=== PATIENT | male | born 1985 | race Caucasian/White ===

== ENCOUNTER 2022-02-24 08:22 | Outpatient (REF) | payer OTHER, SELFPAY ==
[2022-02-24 11:14] LABS: Appearance Urine Clear; Color Urine Yellow; Glucose Urine UA Negative (Negative); Leukocyte Esterase Urine Negative (Negative); Nitrite Urine Negative (Negative); Urine Blood Negative (Negative); Urine Ketones Negative (Negative); Urine Protein Negative (Neg-Trace)
[2022-02-24 11:16] LABS: MANUAL DIFF FLAG NO
[2022-02-24 11:30] LABS: Basophils Absolute Auto 0.1 X10*3/uL (0.0-0.2); Basophils Percent Auto 0.8 % (0-2); Eosinophils Absolute Auto 0.1 X10*3/uL (0.0-0.4); Eosinophils Percent Auto 1.1 % (0-4); Hematocrit 50.9 % (42.0-52.0); Hemoglobin 16.9 g/dl (14.0-18.0); Imm Gran Abs Auto 0.02 X10*3/uL (0.00-0.03); Imm Gran Pct Auto 0.2 % (0.0-0.4); Lymphocytes Absolute Auto 2.1 X10*3/uL (1.2-4.9); Lymphocytes Percent Auto 25.6 % (20-40); Mean Corpuscular HGB Conc 33.2 g/dl (31.0-36.0); Mean Corpuscular Volume 87.3 fL (80.0-98.0); Mean Platelet Volume 9.7 fL (9.4-12.4); Monocytes Absolute Auto 0.8 X10*3/uL (0.1-1.2); Monocytes Percent Auto 9.9 % (2-11); Neutrophils Absolute Auto 5.2 x10*3/uL (2.0-8.3); Neutrophils Percent Auto 62.4 % (45-73); Platelet Count 267 X10*3/uL (160-400); Red Blood Count 5.83 X10*6/uL (4.60-5.80); White Blood Count 8.3 X10*3/uL (4.8-10.8)
[2022-02-24 12:01] LABS: Alanine Aminotransferase 30 U/L (0-40); Albumin Level 4.3 g/dL (3.5-5.0); Alkaline Phosphatase 86 U/L (39-117); Anion Gap 12 (12-20); Aspartate Amino Transferase 18 U/L (5-37); Bilirubin Total 0.7 mg/dL (0.0-1.0); Blood Urea Nitrogen 12 mg/dL (9-16); Calcium 9.4 mg/dL (8.4-10.2); Carbon Dioxide 32 mmol/L (22-29); Chloride 102 mmol/L (96-108); Cholesterol 218 mg/dL; Estimated Glomerular Filt Rate > 60; Glucose Fasting 99 mg/dL (60-99); HDL Cholesterol 35 mg/dL; LDL Cholesterol Calculated 153 mg/dl; Potassium 4.4 mmol/L (3.3-5.1); Sodium 142 mmol/L (135-145); Total Protein 7.6 g/dL (6.5-8.0); Triglycerides 151 mg/dL
[2022-02-24 12:03] LABS: TSH reflex Free T4 1.41 uIU/mL (0.32-4.0)
== END 2022-02-24 08:23 | disposition home or self-care (01) ==
LOC: HO.HMGCLDS 08:22
PROVIDERS: PCP Nurse Practitioner Family; Visit Provider Nurse Practitioner Family
DX: Z00.00 Encounter for general adult medical examination without abnormal findings (principal)
CPT/HCPCS: 36415; 80053; 80061; 81003; 84443; 85025

== ENCOUNTER → 2022-03-30 14:31 | Outpatient (BNVA) | payer OTHER, SELFPAY | PROVIDERS: PCP Nurse Practitioner Family; Visit Provider Internal Medicine | DX: J45.991 Cough variant asthma (principal); J30.9 Allergic rhinitis, unspecified ==

== ENCOUNTER → 2022-04-29 14:11 | Outpatient (BNVA) | payer OTHER, SELFPAY | PROVIDERS: PCP Nurse Practitioner Family; Visit Provider Internal Medicine | DX: Z13.89 Encounter for screening for other disorder (principal) ==

== ENCOUNTER → 2022-06-17 09:59 | Outpatient (REF) | payer OTHER, SELFPAY | LOC: HO.SL 09:59 | PROVIDERS: PCP Nurse Practitioner Family; Visit Provider Internal Medicine | DX: G47.33 Obstructive sleep apnea (adult) (pediatric) (principal); E66.01 Morbid (severe) obesity due to excess calories; J45.991 Cough variant asthma | CPT/HCPCS: 95806 ==

== ENCOUNTER → 2022-06-29 15:53 | Outpatient (BNVA) | payer OTHER, SELFPAY | PROVIDERS: PCP Nurse Practitioner Family; Visit Provider Internal Medicine | DX: Z13.89 Encounter for screening for other disorder (principal) ==

== ENCOUNTER 2023-02-07 15:58 | Outpatient (AMB) | payer OTHER, SELFPAY ==
[2023-02-07 16:04] VITALS: BP 130/88; PULSE 86; O2SAT 96; BMI 43.9
--- NOTE | 2023-02-07 16:04 | MHC.PC.OV ---
Vital Signs 02/07/23 16:04 Height 5 ft 6 in Weight 272 lb BMI 43.9 BP 130/88 Blood Pressure Location Lt brachial Position Sitting Pulse 86 Pulse Source Pulse Oximeter Pulse Oximetry (%) 96 Oxygen Delivery Method Room Air Intake Visit Reasons: Annual PE Intake Note: pt is here for his Annual PE Allergies amoxicillin Allergy (Unknown, Unverified 02/07/23 16:58) nausea/vomitting sumatriptan Allergy (Unknown, Verified 02/07/23 16:58) nausea/vomiting Medication List - Last Reconciled 02/07/23 by AUDRA Gomez albuterol sulfate 90 mcg/actuation 1 inh inhalation QID PRN cetirizine (Zyrtec) 10 mg PO DAILY PRN fluticasone propionate 50 mcg/actuation (Flonase Allergy Relief) 1 spray intranasal BID montelukast 10 mg PO BEDTIME 90 days omeprazole 20 mg PO BEDTIME Tobacco use date assessed: 02/07/23 Dental Screening Dental Screen Date: 02/07/23 Did you have a dental visit in the last 12 months?: Yes Did you have a dental problem in the last 6 months where you did not have access to dental care?: No Was dental information given to patient?: Patient has dentist HPI Annual PE HPI Details Pt is here for a PE. Will order labs. Pt c/o post-nasal drip. He reports that this only occurs in the morning and causes a cough. Pt is currently taking cetirizine 2 tabs at night as well as montelukast. will have him take 2 more cetirizine in the am PFSH Medical History EMILY (obstructive sleep apnea) Morbid obesity Cough variant asthma Allergic rhinitis Lateral epicondylitis, right elbow Family History Father Mental health disorder Maternal Uncle Substance use disorder Paternal Uncle Substance use disorder Social History Housing: House Patient Tobacco Use Status: Never used Tobacco e-Cigarette/Vaping Use: Never Used Second Hand Smoke Exposure: No service: No Current occupational status: employed Current occupation: [employer] Cognitive needs: No Hearing needs: No Vision needs: No Questionnaire Thrive Questionnaire Date Thrive assessed: 02/03/22 AUDIT C Alcohol Use Questionnaire (AUDIT-C) 1. How often do you have a drink containing alcohol?: 2-3 times a week 2. How many drinks containing alcohol do you have on a typical day when you are drinking?: 3 or 4 3. How often do you have six or more drinks on one occasion?: Never Total Score: 4 Score Reviewed/Action Taken: Yes ZULAY-7 AMB Questionnaire ZULAY-7 Date ZULAY - 7 assessed: 02/03/22 Source: Developed by Drs. Joshua Rhoades, Eveline Shay, Branden Moura and colleagues, with an educational juan from [employer]. Review of Systems Const Denies chills and Denies fever(s) Eyes Denies blurry vision ENT Denies vertigo, Denies dizziness and Denies sore throat Card Denies chest pain at rest, Denies chest pain with activity, Denies diaphoresis, Denies dyspnea and Denies dyspnea on exertion Resp Denies cough, Denies dyspnea, Denies dyspnea on exertion and Denies wheezing GI Denies abdominal pain, Denies melena, Denies hematochezia, Denies constipation, Denies diarrhea and Denies loose stools Denies hematuria Musc Denies numbness and Denies tingling Skin/Breast Denies lesions Neuro Denies vertigo, Denies dizziness, Denies numbness and Denies tingling Psych Denies anxiety, Denies depression, Denies homicidal ideation, Denies suicidal ideation and Denies other (substance abuse) Aller/Immun Denies wheezing Physical exam (Primary Care) Vital Signs: Last Vital Signs Pulse 86 02/07/23 16:04 BP 130/88 02/07/23 16:04 Pulse Ox 96 02/07/23 16:04 Oxygen Delivery Method Room Air 02/07/23 16:04 BMI result Body Mass Index 43.9 Tobacco/Smoking Status: Tobacco use Status Tobacco use date assessed 02/07/23 02/07/23 16:10 Patient Tobacco Use Status Never used Tobacco 02/07/23 16:04 e-Cigarette/Vaping Use Never Used 02/07/23 16:04 Thrive Assessment: Date of Thrive Assessment Date Thrive assessed 02/03/22 02/07/23 16:04 Const General: cooperative Nutritional Appearance: obese morbidly obese Orientation/consciousness: patient oriented x3 HENMT Head: Yes normal to inspection, Yes normocephalic and Yes atraumatic Ears: TM's normal bilaterally Eyes General: appearance normal, both eyes and all related structures Alignment and Position: alignment normal and position normal Neck Neck: Yes normal visual inspection and Yes no lymphadenopathy Thyroid: Thyroid normal Resp Effort & Inspection: normal respiratory effort Auscultation: clear to auscultation bilaterally Cardio Rate: regular rate Rhythm: regular rhythm Heart sounds: S1 normal heart sound present, S2 normal heart sound present and no murmurs GI Palpation (GI): Soft to palpation and nontender Auscultation: normal bowel sounds Male General Exam: Yes normal external exam Penis: normal penis Scrotum: scrotum normal, testes descended bilaterally and no inguinal hernias Testes: no testicular mass Skin Rashes: no rashes Neuro General: patient oriented x3, moves all extremities, no focal motor deficits and deep tendon reflexes 2+ bilaterally Romberg Test: Negative Psych Appearance: grossly normal Mental Status: mental status grossly normal Speech and movement: Normal speech and movement present Affect: normal affect Attitude: cooperative Thought process: Normal thought process present Thought content: Normal thought content present Insight: Good insight present (Psych) Judgement: Good judgement present (Psych) Assessment and Plan Assessment & Plan (1) Physical exam: Code(s): Z00.00 - Encounter for general adult medical examination without abnormal findings Plan The patient agreed to the use of a medical oncology physician for this encounter. Scribed for AUDRA Bergman by Bibi Connolly medical oncology physician, on 02/07/2023 at 16:15 EST. Orders: Orders TSH reflex Free T4 Today Z00.00 - Encounter for general adult medical examination without abnormal findings Lipid Panel Today Z00.00 - Encounter for general adult medical examination without abnormal findings Complete Blood Count Auto Diff Today Z00.00 - Encounter for general adult medical examination without abnormal findings Comprehensive [place]. Panel Fast Today Z00.00 - Encounter for general adult medical examination without abnormal findings UA CC w/rflx Micro + Cult Today Z00.00 - Encounter for general adult medical examination without abnormal findings Coding Level of Care Code Est Pt Prev Care 18-39y(09930) Diagnoses Physical exam Z00.00
== END 2023-02-07 16:33 | disposition home or self-care (01) ==
PROVIDERS: Visit Provider Nurse Practitioner Family
DX: Z00.00 Encounter for general adult medical examination without abnormal findings (principal)
CPT/HCPCS: 99395

== ENCOUNTER 2023-03-23 13:51 | Outpatient (AMB) | payer OTHER, SELFPAY ==
--- NOTE | 2023-03-23 13:58 | MHC.OFFWIV ---
Intake Vital Signs 03/23/23 13:59 Height 5 ft 6 in Weight 270 lb 6 oz BMI 43.6 BP 140/90 H Blood Pressure Location Rt brachial Position Sitting Pulse 96 Pulse Source Pulse Oximeter Temp 97.5 F Temp Source Temporal Artery Scan Pulse Oximetry (%) 100 Oxygen Delivery Method Room Air Intake Visit Reasons: EST/sinus infection (lobby masked) Intake Note: Pt is here c/o possible sinus infection. Pt has c/o cough and sinus pressure for four days. Patient Tobacco Use Status: Never used Tobacco Allergies amoxicillin Allergy (Unknown, Unverified 03/23/23 13:59) nausea/vomitting sumatriptan Allergy (Unknown, Verified 03/23/23 13:59) nausea/vomiting Do you need a note to return to daycare/school/sports/work: No HPI EST/sinus infection (lobby masked) HPI Details 37 year old male patient presents today with a 4-5 day history of persistent, productive cough and nasal pressure/sinus congestion. He reports this happens about 2-3 times per year. She has chronic sinusitis and takes Zyrtec, flonase, singulair for this. He has been trying sudafed and prn albuterol inhaler without significant relief. Denies fever or chills. [facility] Medical History EMILY (obstructive sleep apnea) Morbid obesity Cough variant asthma Allergic rhinitis Lateral epicondylitis, right elbow Family History Father Mental health disorder Maternal Uncle Substance use disorder Paternal Uncle Substance use disorder Social History Housing: House Patient Tobacco Use Status: Never used Tobacco e-Cigarette/Vaping Use: Never Used Second Hand Smoke Exposure: No service: No Current occupational status: employed Current occupation: [employer] Cognitive needs: No Hearing needs: No Vision needs: No Review of Systems Const All systems reviewed & are unremarkable except as noted in HPI and below Physical Exam Vital Signs: Last Vital Signs Temp 97.5 F 03/23/23 13:59 Pulse 96 03/23/23 13:59 BP 140/90 H 03/23/23 13:59 Pulse Ox 100 12/20/23 13:59 Oxygen Delivery Method Room Air 03/23/23 13:59 BMI result Body Mass Index 43.6 Const General: cooperative HEENT Head: Yes normal to inspection Ears: hearing grossly normal bilaterally General nose exam: Normal external nose present and Nasal discharge present Face and sinus: Yes sinus tenderness (frontal and maxillary) Mouth: Normal oral and palatal mucosa present Throat: Yes posterior oropharynx abnormal (erythema) and Yes postnasal drainage Neck Neck: Yes no lymphadenopathy Resp Effort & Inspection: normal respiratory effort and Actively coughing Quality: actively coughing Auscultation: clear to auscultation bilaterally Cardio Jugular venous distension: no JVD Palpation: normal PMI Rate: regular rate Rhythm: regular rhythm Skin General skin exam: no rashes or lesions noted Extrem General: Yes capillary refill normal and Yes no clubbing, cyanosis or edema Psych Appearance: grossly normal Mental Status: mental status grossly normal Assessment & Plan Assessment & Plan (1) Acute sinus infection: Code(s): J01.90 - Acute sinusitis, unspecified Qualifiers: Sinusitis location: maxillary Recurrence: non-recurrent Qualified Code(s): J01.00 - Acute maxillary sinusitis, unspecified Plan: Started patient on azithromycin, short course of PO prednisone, and benzonatate for his persistent cough. We reviewed indications, use, possible s/e of these medications. He can continue to utilize allergy medication and inhaler as needed. Declines viral testing. If he does not improve with treatment he should return to the clinic for further evaluation. He agrees to plan. (2) Upper respiratory infection: Code(s): J06.9 - Acute upper respiratory infection, unspecified Qualifiers: URI type: unspecified URI Qualified Code(s): J06.9 - Acute upper respiratory infection, unspecified Plan: Plan as above. Medications: New azithromycin For 250 mg dose pack: take 500 mg today (day 1), then 250 mg for 4 days (days 2-5) PO 6 tabs 0RF J01.00 - Acute maxillary sinusitis, unspecified benzonatate 100 mg PO BID 14 caps 0RF cough 7 days R05.9 - Cough, unspecified prednisone 20 mg PO BID 10 tabs 0RF 5 days J01.00 - Acute maxillary sinusitis, unspecified, J06.9 - Acute upper respiratory infection, unspecified Coding Level of Care Code Est Pt Level 3 (00252) Diagnoses Acute non-recurrent maxillary sinusitis J01.00 Sinusitis location: maxillary Recurrence: non-recurrent Upper respiratory tract infection, unspecified type J06.9 URI type: unspecified URI
[2023-03-23 13:59] VITALS: BP 140/90; PULSE 96; TEMP 36.4; O2SAT 100; BMI 43.6
== END 2023-03-23 14:47 | disposition home or self-care (01) ==
PROVIDERS: PCP Nurse Practitioner Family; Visit Provider Nurse Practitioner Family
DX: J01.00 Acute maxillary sinusitis, unspecified (principal); J06.9 Acute upper respiratory infection, unspecified
CPT/HCPCS: 99213

== ENCOUNTER 2023-08-08 15:08 | Outpatient (AMB) | payer OTHER, SELFPAY ==
--- NOTE | 2023-08-08 15:16 | MHC.PC.OV ---
Vital Signs 08/08/23 15:18 Height 5 ft 6 in Weight 273 lb BMI 44.1 BP 124/80 Blood Pressure Location Lt brachial Position Sitting Pulse 80 Pulse Source Pulse Oximeter Pulse Oximetry (%) 98 Oxygen Delivery Method Room Air Intake Visit Reasons: 6 Month follow up Intake Note: Patient here for follow up on cough that has been present for about 1 year, pt states the cough is very bad in the morning especially. pt would like referral to ENT Allergies amoxicillin Allergy (Unknown, Unverified 08/08/23 15:20) nausea/vomitting sumatriptan Allergy (Unknown, Verified 08/08/23 15:20) nausea/vomiting Medication List - Last Reconciled 08/08/23 by AUDRA Gomez albuterol sulfate 90 mcg/actuation 1 inh inhalation QID PRN cetirizine (Zyrtec) 10 mg PO DAILY PRN fluticasone propionate 50 mcg/actuation (Flonase Allergy Relief) 1 spray intranasal BID montelukast 10 mg PO BEDTIME 90 days omeprazole 20 mg PO BEDTIME Tobacco use date assessed: 08/08/23 Dental Screening Dental Screen Date: 08/08/23 Did you have a dental visit in the last 12 months?: Yes Did you have a dental problem in the last 6 months where you did not have access to dental care?: No Was dental information given to patient?: Patient has dentist HPI 6 Month follow up HPI Details GERD: Ongoing, though managed with Omeprazole. Pt reports increased mucus production. He also reports some sinus pressure and cough, every morning since having COVID over a year ago. Pt was previously treated (most recently) with antibiotics and tessalon perles. He was taking cetirizine 20mg bid for approximately 2 weeks, which did not help. Will order CT of sinuses and RAST testing. Pt will let me know what television antenna installer he would like to see. Denies fever, chills, and dizziness. [facility] Medical History EMILY (obstructive sleep apnea) Morbid obesity Cough variant asthma Allergic rhinitis Lateral epicondylitis, right elbow Family History Father Mental health disorder Maternal Uncle Substance use disorder Paternal Uncle Substance use disorder Social History Housing: House Patient Tobacco Use Status: Never used Tobacco e-Cigarette/Vaping Use: Never Used Second Hand Smoke Exposure: No service: No Current occupational status: employed Current occupation: [employer] Cognitive needs: No Hearing needs: No Vision needs: No Questionnaire Thrive Questionnaire Date Thrive assessed: 02/03/22 I am a: Patient What is your living situation today?: I have a steady place to live Within the past 12 months, did the food you bought not last and you didn't have the money to get more?: Never true Within the past 12 months, did you worry whether your food would run out before you got money to buy more?: Never true THRIVE Score: 0 AUDIT C Alcohol Use Questionnaire (AUDIT-C) 1. How often do you have a drink containing alcohol?: 2-3 times a week 2. How many drinks containing alcohol do you have on a typical day when you are drinking?: 1 or 2 3. How often do you have six or more drinks on one occasion?: Less than monthly Total Score: 4 ZULAY-7 AMB Questionnaire ZULAY-7 Date ZULAY - 7 assessed: 02/03/22 Feeling nervous, anxious, or on edge: 1 = Several days Not being able to stop or control worryin = Several days Worrying too much about different things: 1 = Several days Trouble relaxin = Several days Being so restless that it is hard to sit still: 0 = Not at all Becoming easily annoyed or irritable: 1 = Several days Feeling afraid as if something awful might happen: 0 = Not at all Total ZULAY-7 score (0-4 normal; 5-9 mild; 10-14 moderate; 15-21 severe): 5 Source: Developed by Drs. Joshua Rhoades, Eveline Shay, Branden Moura and colleagues, with an educational juan from [employer]. Review of Systems Const Reports as per HPI Physical exam (Primary Care) Vital Signs: Last Vital Signs Pulse 80 08/08/23 15:18 BP 124/80 08/08/23 15:18 Pulse Ox 98 08/08/23 15:18 Oxygen Delivery Method Room Air 08/08/23 15:18 BMI result Body Mass Index 44.1 Tobacco/Smoking Status: Tobacco use Status Tobacco use date assessed 08/08/23 08/08/23 15:25 Patient Tobacco Use Status Never used Tobacco 08/08/23 15:18 e-Cigarette/Vaping Use Never Used 08/08/23 15:18 Thrive Assessment: Date of Thrive Assessment Date Thrive assessed 02/03/22 08/08/23 15:18 Const General: cooperative Nutritional Appearance: obese morbidly obese Orientation/consciousness: patient oriented x3 HENMT Mouth: Normal oral and palatal mucosa present Teeth and gingiva: dentition normal Throat: Yes posterior oropharynx normal and Yes tonsils normal Neck Lymphatic: no lymphadenopathy noted Resp Effort & Inspection: normal respiratory effort Auscultation: clear to auscultation bilaterally Cardio Rate: regular rate Rhythm: regular rhythm Heart sounds: S1 normal heart sound present and S2 normal heart sound present Neuro General: patient oriented x3 Psych Appearance: grossly normal Mental Status: mental status grossly normal Speech and movement: Normal speech and movement present Affect: normal affect Attitude: cooperative Thought process: Normal thought process present Thought content: Normal thought content present Insight: Good insight present (Psych) Judgement: Good judgement present (Psych) Assessment and Plan Assessment & Plan (1) Chronic cough: Code(s): R05.3 - Chronic cough Plan: Sinus CT ordered (2) Sinus pressure: Code(s): J34.89 - Other specified disorders of nose and nasal sinuses Plan: Sinus CT ordered Plan The patient agreed to the use of a certified ophthalmic medical technician for this encounter. Scribed for AUDRA Bergman by Bibi Connolly certified ophthalmic medical technician, on 08/08/2023 at 15:35 EST. Orders: Orders CT sinus wo IV con Today J34.89 - Other specified disorders of nose and nasal sinuses, R05.3 - Chronic cough Coding Level of Care Code Est Pt Level 3 (64187) Diagnoses Chronic cough R05.3 Sinus pressure J34.89
[2023-08-08 15:18] VITALS: BP 124/80; PULSE 80; O2SAT 98; BMI 44.1
== END 2023-08-08 16:54 | disposition home or self-care (01) ==
PROVIDERS: PCP Nurse Practitioner Family; Visit Provider Nurse Practitioner Family
DX: R05.3 Chronic cough (principal); J34.89 Other specified disorders of nose and nasal sinuses
CPT/HCPCS: 99213

== ENCOUNTER 2023-08-20 08:06 | Outpatient (REF) | payer OTHER, SELFPAY ==
[2023-08-20 11:25] LABS: Basophils Absolute Auto 0.1 X10*3/uL (0.0-0.2); Basophils Percent Auto 0.8 % (0-2); Eosinophils Absolute Auto 0.1 X10*3/uL (0.0-0.4); Eosinophils Percent Auto 1.3 % (0-4); Hematocrit 49.2 % (42.0-52.0); Hemoglobin 16.4 g/dl (14.0-18.0); Imm Gran Abs Auto 0.03 X10*3/uL (0.00-0.03); Imm Gran Pct Auto 0.4 % (0.0-0.4); Lymphocytes Absolute Auto 2.2 X10*3/uL (1.2-4.9); Lymphocytes Percent Auto 28.5 % (20-40); MANUAL DIFF FLAG NO; Mean Corpuscular HGB Conc 33.3 g/dl (31.0-36.0); Mean Corpuscular Hemoglobin 28.7 pg (27.0-33.0); Mean Corpuscular Volume 86.2 fL (80.0-98.0); Mean Platelet Volume 9.7 fL (9.4-12.4); Monocytes Absolute Auto 0.9 X10*3/uL (0.1-1.2); Monocytes Percent Auto 11.2 % (2-11); Neutrophils Absolute Auto 4.5 x10*3/uL (2.0-8.3); Neutrophils Percent Auto 57.8 % (45-73); Platelet Count 251 X10*3/uL (160-400); Red Blood Count 5.71 X10*6/uL (4.60-5.80); Red Cell Distribution Width 12.3 % (11.0-16.0); White Blood Count 7.7 X10*3/uL (4.8-10.8)
[2023-08-20 11:40] LABS: Appearance Urine Clear; Color Urine Yellow; Glucose Urine UA Negative (Negative); Leukocyte Esterase Urine Negative (Negative); Nitrite Urine Negative (Negative); Urine Blood Negative (Negative); Urine Ketones Negative (Negative); Urine Protein Negative (Neg-Trace)
[2023-08-20 12:14] LABS: Alanine Aminotransferase 30 U/L (0-40); Alkaline Phosphatase 81 U/L (39-117); Anion Gap 14 (12-20); Aspartate Amino Transferase 23 U/L (5-37); Bilirubin Total 0.6 mg/dL (0.0-1.0); Blood Urea Nitrogen 13 mg/dL (9-16); Calcium 9.3 mg/dL (8.4-10.2); Carbon Dioxide 24 mmol/L (22-29); Chloride 106 mmol/L (96-108); Cholesterol 184 mg/dL (<200); Estimated Glomerular Filt Rate > 60; Glucose Fasting 97 mg/dL (60-99); HDL Cholesterol 33 mg/dL (>40); LDL Cholesterol Calculated 121 mg/dL (<100); Potassium 4.1 mmol/L (3.3-5.1); Sodium 140 mmol/L (135-145); Total Protein 7.4 g/dL (6.5-8.0); Triglycerides 154 mg/dL (<150)
[2023-08-20 12:19] LABS: TSH reflex Free T4 1.18 uIU/mL (0.32-4.0)
== END 2023-08-20 08:07 | disposition home or self-care (01) ==
LOC: HO.HMGCLDS 08:06
PROVIDERS: PCP Nurse Practitioner Family; Visit Provider Nurse Practitioner Family
DX: Z00.00 Encounter for general adult medical examination without abnormal findings (principal)
CPT/HCPCS: 36415; 80053; 80061; 81003; 84443; 85025

== ENCOUNTER 2023-08-24 16:48 | Outpatient (REF) | payer OTHER, SELFPAY ==
--- NOTE | ~2023-08-24 | CT_ITS ---
EXAMINATION: CT SINUS WITHOUT CONTRAST CLINICAL INFORMATION: Chronic cough COMPARISON: None TECHNIQUE: Multidetector helical imaging was performed in the axial plane using landmarks protocol with generation of coronal and sagittal reformatted images. This CT examination was performed using dose optimization techniques as appropriate, variously including the following: *Automated exposure control *Adjustment of mA and/or kV according to patient size (this includes techniques or standardized protocols for targeted exams where dose is matched to indication/reason for exam; i.e. extremities or head) *Use of iterative reconstruction technique DLP: 123.36 mGy-cm FINDINGS: FRONTAL SINUSES AND DRAINAGE PATHWAYS: The frontal sinuses are clear. The frontal recesses are patent. MAXILLARY SINUSES AND DRAINAGE PATHWAYS: Trace mucosal thickening in the alveolar recesses of the left maxillary sinus. The maxillary ostia and infundibula are patent. ETHMOID SINUSES: The ethmoid air cells are clear. The ethmoid roofs appear intact and are symmetric. SPHENOID SINUS AND DRAINAGE PATHWAYS: The sphenoid sinus is clear.. The sphenoid ostia and sphenoethmoidal recesses are patent. NASAL PASSAGE: The nasal passages are clear. Large leftward osseous spur projects inferior to a hypoplastic left middle turbinate. ADDITIONAL RELEVANT FINDINGS: The lamina papyracea are intact. No demonstrated abnormalities of the orbits. The carotid canals are normally covered by bone. No significant maxillary periapical disease. The temporomandibular joints are normal. The mastoid air cells and middle ear cavities are well aerated. Limited evaluation of the intracranial structures without significant abnormalities. CT/CT sinus wo IV con IMPRESSION: 1. No active sinus disease. 2. Leftward osseous spurring of the nasal septum.
== END 2023-08-24 16:49 | disposition home or self-care (01) ==
LOC: HO.CT 16:48
PROVIDERS: PCP Nurse Practitioner Family; Visit Provider Nurse Practitioner Family
DX: J34.89 Other specified disorders of nose and nasal sinuses (principal); R05.3 Chronic cough
CPT/HCPCS: 70486

== ENCOUNTER 2024-02-29 16:00 | Outpatient (AMB) | payer OTHER, SELFPAY ==
[2024-02-29 16:03] VITALS: BP 118/84; PULSE 98; O2SAT 96; BMI 42.7
--- NOTE | 2024-02-29 16:03 | A.OFFPC_ITS ---
Vital Signs 02/29/24 16:03 Height 5 ft 6 in Weight 264 lb 8 oz BMI 42.7 BP 118/84 Blood Pressure Location Lt brachial Position Sitting Pulse 98 Pulse Source Pulse Oximeter Pulse Oximetry (%) 96 Oxygen Delivery Method Room Air Intake Visit Reasons: Annual PE Allergies amoxicillin Allergy (Unknown, Unverified 02/29/24 16:06) nausea/vomitting sumatriptan Allergy (Unknown, Verified 02/29/24 16:06) nausea/vomiting Medication List - Last Reconciled 02/29/[address] [facility] albuterol sulfate 90 mcg/actuation 1 inh inhalation QID PRN cetirizine (Zyrtec) 10 mg PO DAILY PRN fluticasone propionate 50 mcg/actuation (Flonase Allergy Relief) 1 spray intranasal BID montelukast 10 mg PO BEDTIME 90 days omeprazole 20 mg PO BEDTIME Tobacco use date assessed: 02/29/24 Dental Screening Dental Screen Date: 02/29/24 Did you have a dental visit in the last 12 months?: Yes Did you have a dental problem in the last 6 months where you did not have access to dental care?: No Was dental information given to patient?: Patient has dentist HPI Annual PE HPI Details History of Present Illness The patient is a 38-year-old male presenting with obesity and chronic cough. His chronic cough has been persistent, occurring every morning and often causing severe gagging. The patient reports no relief from previous medical therapies or medications. He has no history of sleep apnea and has tested negative for obstructive sleep conditions. Previously consulted specialists include a agent producer, with no significant findings, and the patient plans to see an telephone information clerk soon. The cough has persisted despite these consultations and is notably present in the mornings, with no alleviation from current treatments. For obesity, the patient has struggled with weight management despite efforts including dietary changes, reduced alcohol intake, and regular exercise. Patient's BMI is noted to be 42.7. The patient denies a history of pancreatitis. Patient has observed a minor weight reduction, approximately five pounds over a six-month duration, but describes difficulty in achieving further weight loss (exercise and diet). Social History - History of back and hip problems since playing baseball. - Attempts weight management through hea lthy eating and exercise. - Denies smoking but references use of n icotine alternatives. - Reports reduced alcohol intake as part of weight management efforts. Review of Systems - Respiratory: Reports chronic cough wit hout relief from treatments. - Musculoskeletal: Reports occasional ba ck pain higher than usual but consistent with previous back issues. - Gastrointestinal: Denies chest pain, b lood in stool, constipation, or diarrhea. - General: Denies recent fevers or chill s. Physical Exam General: Cooperative, healthy appearing, comfortable, no acute distress and well developed Orientation: Patient oriented x3 Head: Normal to inspection Ears: Hearing grossly normal bilaterally Nose: Normal external nose present Face and sinus: Normal facial exam Eyes: Appearance normal, both eyes and all related structures Neck: Normal visual inspection and Yes full ROM Respiratory: Moving really good air, honestly. Maybe slightly diminished, but not bad at all. Clear to auscultation bilaterally Cardiovascular: Regular rate and rhythm. Normal S1 and S2. Heart sounds good GI: Normal to inspection. Soft to palpation and nontender Skin: No rashes or lesions noted Neuro: Patient oriented x3. Good patellar reflexes Extremities: Normal to inspection Results Plan - For obesity, consideration of Wegovy s emaglutide) subject to insurance coverage and absence of contraindications such as pancreatitis. - Chronic cough: Attempt to order respir atory panel from the clinic; consideration for telephone information clerk or ENT follow-up if coughing persists. - Schedule blood work for renal, hepatic , and thyroid function evaluation. - Await results from upcoming telephone information clerk consult and potential KENDRA testing. Patient was informed and verbally consented to the use of an ambient scribe for clinic note documentation during this visit. Discussion Notes Patient Instructions - Continue weight management efforts wit h a focus on dietary and exercise adjustments. - Prepare for upcoming blood work by holland anderson as instructed. - Follow up with telephone information clerk as currently scheduled. - Contact the clinic if new symptoms alicia se or there are significant changes in current conditions. - Await further instructions regarding t he authorization and initiation of Wegovy treatment. - Consider ENT consultation if respirato ry symptoms persist post-telephone information clerk evaluation. [facility] Medical History EMILY (obstructive sleep apnea) Morbid obesity Cough variant asthma Allergic rhinitis Lateral epicondylitis, right elbow Family History Father Mental health disorder Maternal Uncle Substance use disorder Paternal Uncle Substance use disorder Social History Housing: House Patient Tobacco Use Status: Never used Tobacco e-Cigarette/Vaping Use: Never Used Second Hand Smoke Exposure: No service: No Current occupational status: employed Current occupation: [employer] Cognitive needs: No Hearing needs: No Vision needs: No Questionnaire PHQ-9 Over the last 2 weeks, how often have you been bothered by any of the following problems? 1. Little interest or pleasure in doing things: not at all 2. Feeling down, depressed, or hopeless: several days 3. Trouble falling or staying asleep, or sleeping too much: several days 4. Feeling tired or having little energy: not at all 5. Poor appetite or overeating: not at all 6. Feeling bad about yourself - or that you are a failure or have let yourself or your family down: not at all 7. Trouble concentrating on things, such as reading the newspaper or watching television: not at all 8. Moving or speaking so slowly that other people could have noticed. Or the opposite - being so fidgety or restless that you have been moving around a lot m ore than usual: not at all 9. Thoughts that you would be better off or of hurting yourself in some way: not at all Total score: 2 Depression Screening Interpretation: Negative Depression Screening Done: Yes 35153 - PHQ-9 Billing: Yes Source: Developed by Drs. Joshua Rhoades, Eveline Shay, Branden Moura and colleagues, with an educational juan from [employer]. Thrive Questionnaire Date Thrive assessed: 02/26/24 I am a: Patient What is your living situation today?: I have a steady place to live Within the past 12 months, did the food you bought not last and you didn't have the money to get more?: Never true Within the past 12 months, did you worry whether your food would run out before you got money to buy more?: Never true Do you have trouble paying for medicines?: No Do you have trouble getting transportation to medical appointments?: No Do you have trouble paying your heating and electricity bill?: No Do you have trouble taking care of your child, family member or friend?: No Do you have trouble with day-to-day activities such as bathing, preparing meals, shopping, managing finances, etc.?: No Are you currently unemployed and looking for a job?: No Are you interested in more education?: No Please select the resources that you would like help with: None Currently or been in a relationship where the following occur: No concerns reported THRIVE Score: 0 AUDIT C Alcohol Use Questionnaire (AUDIT-C) 1. How often do you have a drink containing alcohol?: 2-4 times a month 2. How many drinks containing alcohol do you have on a typical day when you are drinking?: 1 or 2 3. How often do you have six or more drinks on one occasion?: Less than monthly Total Score: 3 ZULAY-7 AMB Questionnaire ZULAY-7 Date ZULAY - 7 assessed: 02/29/24 Feeling nervous, anxious, or on edge: 0 = Not at all Not being able to stop or control worryin = Not at all Worrying too much about different things: 1 = Several days Trouble relaxin = Not at all Being so restless that it is hard to sit still: 0 = Not at all Becoming easily annoyed or irritable: 1 = Several days Feeling afraid as if something awful might happen: 0 = Not at all Total ZULAY-7 score (0-4 normal; 5-9 mild; 10-14 moderate; 15-21 severe): 2 Source: Developed by Drs. Joshua Rhoades, Eveline Shay, Branden Moura and colleagues, with an educational juan from [employer]. ZULAY-7 Assessment Billing ZULAY-7 Assessment Tool: ZULAY-7 Assessment 97258 Physical exam (Primary Care) Vital Signs: Last Vital Signs Pulse 98 02/29/24 16:03 BP 118/84 02/29/24 16:03 Pulse Ox 96 02/29/24 16:03 Oxygen Delivery Method Room Air 02/29/24 16:03 BMI result Body Mass Index 42.7 Tobacco/Smoking Status: Tobacco use Status Tobacco use date assessed 02/29/24 02/29/24 16:07 Patient Tobacco Use Status Never used Tobacco 02/29/24 16:07 e-Cigarette/Vaping Use Never Used 02/29/24 16:07 PHQ-9: PHQ-9 Score PHQ-9: Total score 2 02/29/24 16:28 Depression Screening Interpretation: Negative Thrive Assessment: Date of Thrive Assessment Date Thrive assessed 02/26/24 02/29/24 16:07 Currently or been in a relationship where the following occur: No concerns reported Office Procedures Flu Questionnaire Does the patient have a severe egg allergy?: No Does the patient have severe life threatening allergies?: No Does the patient have a fever or illness today?: No Has the patient ever had Guillain-[place] Syndrome?: No Has the patient ever had any past reaction to a flu shot?: No Immunizations Fluarix Triv [id number] (PF) 45 mcg (15 mcg x 3)/0.5 mL IM syringe Performing Provider: SANDRA Gomez Performing Location[place] [facility] Administered by: Debbie Blancas CMA on 02/29/24 16:42 Dose Route Admin Location Dispensed Lot Number Expiration Date NDC House Mother 0.5 mL IM Left Tricep 0.5 mL [id number] 10/01/24 23859-614-16 [employer] VIS Given Date VIS Provided VIS Publication Date 02/29/24 Single Vaccine 20 Eligibility Eligibility Date Funding Source Not [facility] Eligible 02/29/24 Private Coding Level of Care Code Est Pt Prev Care 18-39y(14543) Diagnoses Physical exam Z00.00 Chronic cough R05.3 Additional Codes ZULAY-7 Assessment Billing - ZULAY-7 Assessment Tool: ZULAY-7 Assessment 32911 ([id number]) PHQ-9 - 72596 - PHQ-9 Billing: Yes ([id number]) Assessment & Plan Assessment & Plan (1) Physical exam: Code(s): Z00.00 - Encounter for general adult medical examination without abnormal findings Category: Medical (2) Chronic cough: Code(s): R05.3 - Chronic cough Category: Medical Plan . Orders: Orders Comprehensive [place]. Panel Fast Today Z00.00 - Encounter for general adult medical examination without abnormal findings TSH reflex Free T4 Today Z00.00 - Encounter for general adult medical examination without abnormal findings UA CC w/rflx Micro + Cult Today Z00.00 - Encounter for general adult medical examination without abnormal findings Resp Allergy Profile Region I Today R05.3 - Chronic cough Complete Blood Count Auto Diff Today Z00.00 - Encounter for general adult medical examination without abnormal findings Lipid Panel Today Z00.00 - Encounter for general adult medical examination without abnormal findings Immunoglobulin E Today R05.3 - Chronic cough Influenza [id number] Immunization Today Z23 - Encounter for immunization Medications: New semaglutide (weight loss) (William) administer weeks 1 through 4 of therapy 0.25 mg (0.5 mL) subcut QWEEK 2 mL 0RF
== END 2024-02-29 16:47 | disposition home or self-care (01) ==
PROVIDERS: PCP Nurse Practitioner Family; Visit Provider Nurse Practitioner Family
DX: Z00.00 Encounter for general adult medical examination without abnormal findings (principal); R05.3 Chronic cough; Z23 Encounter for immunization

== ENCOUNTER → 2024-02-29 16:00 | Outpatient (BNVA) | payer OTHER, SELFPAY | PROVIDERS: PCP Nurse Practitioner Family; Visit Provider Nurse Practitioner Family | DX: Z00.00 Encounter for general adult medical examination without abnormal findings (principal); Z23 Encounter for immunization; R05.3 Chronic cough | CPT/HCPCS: 90471; 90656; 96127 ==

== ENCOUNTER 2024-04-16 15:22 | Outpatient (AMB) | payer OTHER, SELFPAY ==
--- NOTE | 2024-04-16 15:23 | A.OFFVIS_ITS ---
Vital Signs 04/16/24 15:27 Height 5 ft 6 in Weight 266 lb 12.149 oz BMI 43.1 BP 120/70 Blood Pressure Location Rt brachial Position Sitting Pulse 85 Pulse Source Pulse Oximeter Intake Visit Reasons: Morbid (severe) obesity-confirmed Intake Note: Patient presents today to establish treatment for Morbid (Severe) Obesity: Stud Beef Cattle Farmer Required: No Accompanied by: Self / Same As Patient Allergies amoxicillin Allergy (Unknown, Verified 04/16/24 15:28) nausea/vomitting sumatriptan Allergy (Unknown, Verified 04/16/24 15:28) nausea/vomiting Medication List - Last Reconciled 04/16/24 by Joshua Joshi MD albuterol sulfate 90 mcg/actuation 1 inh inhalation QID PRN cetirizine (Zyrtec) 10 mg PO DAILY PRN fluticasone propionate 50 mcg/actuation (Flonase Allergy Relief) 1 spray intranasal BID montelukast 10 mg PO BEDTIME 90 days omeprazole 20 mg PO BEDTIME semaglutide (weight loss) (Wegovy) 0.25 mg (0.5 mL) subcut QWEEK HPI Comments Details: This is a 38-year-old white male sent to endocrinology for evaluation of obesity. Weight gain occurred 20 lb over 2 yrs . Patient has tried diets of portion control . Patient has seen a kiln burner helper yrs ago at [facility] . There was no history of hypothyroidism. There are no symptoms of Dorian syndrome. Medications prescribed are Wegovy . Dad has Marek's Dx. Does not have sleep apnea , No loss of libido [facility] Medical History EMILY (obstructive sleep apnea) Morbid obesity Cough variant asthma Allergic rhinitis Lateral epicondylitis, right elbow Surgical History (Updated 04/16/24 @ 15:29 by MAURIZIO Hollingsworth) Hx of removal of cyst Hx of elbow surgery Family History (Updated 04/16/24 @ 15:33 by MAURIZIO Hollingsworth) Father Mental health disorder Family history of diabetes mellitus Maternal Uncle Substance use disorder Family history of diabetes mellitus Paternal Uncle Substance use disorder Social History Housing: House Patient Tobacco Use Status: Never used Tobacco e-Cigarette/Vaping Use: Never Used Second Hand Smoke Exposure: No service: No Current occupational status: employed Current occupation: [employer] Cognitive needs: No Hearing needs: No Vision needs: No Physical Exam Vital Signs: BMI result Body Mass Index 43.1 Const Other: No cushingoid features. Thyroid gland is normal size weighs about 15 g. There are no thyroid nodules palpated Assessment & Plan Assessment & Plan (1) Morbid obesity: Code(s): E66.01 - Morbid (severe) obesity due to excess calories Category: Medical Plan: This is a 38-year-old white male with a history of morbid obesity. He appears to be clinically and biochemically euthyroid. Plan is to send to kiln burner helper. We will talk to patient about prescribing weight loss medication such as Zepbound or Wegovy . Will attempt to prescribe Zepbound 2.5 mg Q weekly and titrate accordingly if insurance approves. Went over side effects of Zepbound including but not limited to nausea, vomiting rare risk of pancreatitis. If Zepbound is not approved, would attempt to get Wegovy. If this is not approved would then go with needle and Vial Zepbound Orders: Referrals Nutrition/Dietitian Referral E66.01 - Morbid (severe) obesity due to excess calories Medications: New tirzepatide (weight loss) (Zepbound) for 4 weeks 2.5 mg (0.5 mL) subcut QWEEK 2 mL 5RF Discontinued semaglutide (weight loss) (Wegovy) administer weeks 1 through 4 of therapy Discontinued Reason: Doctor's Order 0.25 mg (0.5 mL) subcut QWEEK 2 mL 0RF Coding Level of Care Code New Pt Level 4 (90484) Diagnoses Morbid obesity E66.01
[2024-04-16 15:27] VITALS: BP 120/70; PULSE 85; BMI 43.1
== END 2024-04-16 16:07 | disposition home or self-care (01) ==
PROVIDERS: PCP Nurse Practitioner Family; Visit Provider Internal Medicine Endocrinology, Diabetes & Metabolism
DX: E66.01 Morbid (severe) obesity due to excess calories (principal)
CPT/HCPCS: 99204

== ENCOUNTER 2024-07-24 10:53 | Outpatient (AMB) | payer OTHER, SELFPAY ==
--- NOTE | 2024-07-24 10:55 | A.OFFVIS_ITS ---
Vital Signs 07/24/24 10:57 Height 5 ft 6 in Weight 255 lb 4.725 oz BMI 41.2 BP 114/84 Blood Pressure Location Rt brachial Position Sitting Pulse 84 Pulse Source Pulse Oximeter Pulse Oximetry (%) 97 Oxygen Delivery Method Room Air Intake Visit Reasons: f/u obesity Intake Note: Patient present today for Obesity follow up. Irina reports she has been doing well on Zepbound and feels it may need to be increased from 2.5 mg to 5 mg. Sample Carrier Required: No Accompanied by: Self / Same As Patient Allergies amoxicillin Allergy (Unknown, Verified 07/24/24 11:04) nausea/vomitting sumatriptan Allergy (Unknown, Verified 07/24/24 11:04) nausea/vomiting Medication List - Last Reconciled 07/24/24 by Joshua Joshi MD albuterol sulfate 90 mcg/actuation 1 inh inhalation QID PRN cetirizine (Zyrtec) 10 mg PO DAILY PRN fluticasone propionate 50 mcg/actuation (Flonase Allergy Relief) 1 spray intranasal BID montelukast 10 mg PO BEDTIME 90 days omeprazole 20 mg PO BEDTIME tirzepatide (weight loss) (Zepbound) 2.5 mg (0.5 mL) subcut QWEEK HPI Comments Details: This is a 38-year-old white male sent to endocrinology for evaluation of obesity. Weight gain occurred 20 lb over 2 yrs . Patient has tried diets of portion control . Patient has seen a adult day care worker yrs ago at [facility] . There was no history of hypothyroidism. There are no symptoms of Dorian syndrome. Medications prescribed are Wegovy . Dad has Marek's Dx. Does not have sleep apnea , No loss of libido Currently on Zepbound 2.5 mg Q weekly The patient is a 38-year-old male presenting with medication management for obesity. He has been taking Zepbound 2.5 mg and initially lost about 11 pounds, decreasing from 273 to 255 pounds, but is now experiencing a plateau in weight loss over the past three months. He is concerned about this lack of progress and discussed potentially increasing his dosage with me. The patient experiences mild, manageable nausea a few days after taking the medication but denies any other symptoms. He finds managing the medication compliance straightforward and has no issues with insurance coverage for it. PFSH Medical History EMILY (obstructive sleep apnea) Morbid obesity Cough variant asthma Allergic rhinitis Lateral epicondylitis, right elbow Surgical History (Updated 04/16/24 @ 15:29 by MAURIIZO Hollingsworth) Hx of removal of cyst Hx of elbow surgery Family History (Updated 04/16/24 @ 15:33 by MAURIZIO Hollingsworth) Father Mental health disorder Family history of diabetes mellitus Maternal Uncle Substance use disorder Family history of diabetes mellitus Paternal Uncle Substance use disorder Social History Housing: House Patient Tobacco Use Status: Never used Tobacco e-Cigarette/Vaping Use: Never Used Second Hand Smoke Exposure: No service: No Current occupational status: employed Current occupation: [employer] Cognitive needs: No Hearing needs: No Vision needs: No Physical Exam Vital Signs: BMI result Body Mass Index 41.2 Assessment & Plan Assessment & Plan (1) Morbid obesity: Code(s): E66.01 - Morbid (severe) obesity due to excess calories Category: Medical Plan: This is a 38-year-old white male with a history of morbid obesity. He appears to be clinically and biochemically euthyroid. Currently on Zepbound 2.5 mg Q weekly with a 11 lb weight loss 1. Obesity The patient presents with a weight plateau despite ongoing treatment with Zepbound 2.5 mg. An increase in dosage to 5 mg is advised, contingent on insurance coverage approval. The plan includes coordinating with the pharmacy to ensure medication availability. Follow-up appointments are scheduled with a nurse practitioner Linnea Randhawa NP in 1 mo and a adult day care worker to explore additional management strategies. Non-pharmacological advice includes hydration before meals to help manage satiation. During our discussion, I explained the occurrence of weight plateaus when using medications like Zepbound and discussed the option to increase the dose to 5 mg to potentially overcome this plateau. The patient understood and agreed to this plan, provided insurance coverage is confirmed for the higher dosage. I also informed him about the appointments with the nurse practitioner, Linnea Randhawa , and the adult day care worker to address his dietary needs and strategies further. We reviewed the manageable nature of his nausea and reinforced the importance of continuing healthy eating habits and hydration as part of his weight management regimen. All options, including potential side effects and benefits, were clearly communicated. - Continue Zepbound 2.5 mg until the 5 mg dose is approved. - Attend the follow-up appointments with the nurse practitioner and adult day care worker. - Drink a glass of water before meals to promote fullness. - Monitor for any changes in symptoms and report them if they occur. - Reach out to the pharmacy to confirm medication availability. - The patient had an opportunity to ask questions regarding treatment plan. The patient expressed understanding and agreement with the above treatment plan. Patient was informed and verbally consented to the use of an ambient scribe for clinic note documentation during this visit. Medications: New tirzepatide (weight loss) (Zepbound) 5 mg (0.5 mL) subcut QWEEK 2 mL 3RF Discontinued tirzepatide (weight loss) (Zepbound) for 4 weeks Discontinued Reason: Doctor's Order 2.5 mg (0.5 mL) subcut QWEEK 2 mL 5RF Coding Level of Care Code Est Pt Level 3 (59367) Diagnoses Morbid obesity E66.01
[2024-07-24 10:57] VITALS: BP 114/84; PULSE 84; O2SAT 97; BMI 41.2
== END 2024-07-24 12:05 | disposition home or self-care (01) ==
LOC: HO.ENCR 10:54
PROVIDERS: PCP Nurse Practitioner Family; Visit Provider Internal Medicine Endocrinology, Diabetes & Metabolism
DX: E66.01 Morbid (severe) obesity due to excess calories (principal)
CPT/HCPCS: 99213

== ENCOUNTER 2024-07-24 10:53 | Outpatient (AMB) | payer OTHER, SELFPAY ==
--- NOTE | 2024-07-24 11:23 | A.OFFVIS_ITS ---
VS Expanded 07/24/24 11:25 07/24/24 13:38 Height 5 ft 6 in 5 ft 6 in Weight 255 lb 4.22 oz 255 lb BMI 41.2 41.2 Intake Visit Reasons: Morbid (severe) obesity due to excess calories Allergies amoxicillin Allergy (Unknown, Verified 07/24/24 11:04) nausea/vomitting sumatriptan Allergy (Unknown, Verified 07/24/24 11:04) nausea/vomiting Nutrition Presentation Details: Pt presents for MNT for morbid obesity food frequency fruits: 2 /day fish :dislikes has nuts 1/4 - (2-3 /day) yogurt: 3-4 x/wk vegetables: 1-2 servings/d protein: poultry/beef/prot snacks water: 42 oz/d Physical activity: sports 3 times/wk 45 min to 1hr Pt on Zepbound,recently inc to 5 mg BS Monitoring Most Recent Diabetes Results: Cholesterol 184 mg/dL (<200) 08/20/23 HDL Cholesterol 33 mg/dL (>40) L 08/20/23 Triglycerides 154 mg/dL (<150) H 08/20/23 Creatinine 0.86 mg/dL (0.5-1.4) 08/20/23 Blood Urea Nitrogen 13 mg/dL (9-16) 08/20/23 Sodium 140 mmol/L (135-145) 08/20/23 Potassium 4.1 mmol/L (3.3-5.1) 08/20/23 Chloride 106 mmol/L (96-108) 08/20/23 Carbon Dioxide 24 mmol/L (22-29) 08/20/23 Calcium 9.3 mg/dL (8.4-10.2) 08/20/23 AST 23 U/L (5-37) 08/20/23 ALT 30 U/L (0-40) 08/20/23 Total Protein 7.4 g/dL (6.5-8.0) 08/20/23 Albumin 4.0 g/dL (3.5-5.0) 08/20/23 TIY-Ulkikvb-Fx.Jeor Equation Height: 5 ft 6 in Weight: 255 lb Resting Metabolic Rate: 2016.37 Calculated Activity Level: Mild Activity Calories Needed to Maintain Weight: 2772.51 Diagnosis Nutrition problem #1: overweight/obesity As related to (etiology) #1: diagnosis As evidenced by (sign/symptom) #1: knowledge deficit of diet PFSH Medical History EMILY (obstructive sleep apnea) Morbid obesity Cough variant asthma Allergic rhinitis Lateral epicondylitis, right elbow Surgical History Hx of removal of cyst Hx of elbow surgery Family History Father Mental health disorder Family history of diabetes mellitus Maternal Uncle Substance use disorder Family history of diabetes mellitus Paternal Uncle Substance use disorder Social History Housing: House Patient Tobacco Use Status: Never used Tobacco e-Cigarette/Vaping Use: Never Used Second Hand Smoke Exposure: No service: No Current occupational status: employed Current occupation: [employer] Cognitive needs: No Hearing needs: No Vision needs: No Assessment & Plan Assessment & Plan (1) Morbid obesity: Code(s): E66.01 - Morbid (severe) obesity due to excess calories Category: Medical Plan: Wt: 116 Kg ( 07/27 ) Est kcal needs as per MSJ: 2800 (40% carb, 30% protein/fat) Est fluid needs as per 25-30 ml/d: 3500 Est prot per day as per 1 g/kg bw: 115 Recommend fiber intake : 8-10 g per day and gradually increase to 25-28 g per day for women and 35-38 g for men or as tolerated Recommend sodium intake per day : less than 2000 mg Educated patient on: ( R = reviewed V = verbalizes understanding N/R = needs review N/A = not applicable * Food sources of carbohydrate, adequate serving sizes and its role in various health conditions: R * Differences between complex carbohydrates a simple carbohydrates, role of fiber in diet: R * Lean protein sources of foods: R V NR * Differences between types of fats and role in diet (mono on saturated fat fatty acids, saturated fatty acids, trans fats): R V N/R * Food sources of sodium in salt and healthy modifications for heart health in kidney health: R V R/V * Vitamins and minerals: R V N/R * Healthy plate method concept: R V N/R * Physical activity: Benefits a precaution: R * Patient Instructions: Continue following healthy plate method Reduce on total carb per meal to less 90 g practice mindful eating Maintain physically active, goal 150 min /wk and keep hydrated by choosing water, fruit/herb infused water Coding Level of Care Code Nutr Indiv Intake (67229) Diagnoses Morbid obesity E66.01 Time Spent (min) 30
[2024-07-24 11:25] VITALS: BMI 41.2
[2024-07-24 13:38] VITALS: BMI 41.2
== END 2024-07-24 12:06 | disposition home or self-care (01) ==
LOC: HO.ENCR 10:54
PROVIDERS: PCP Nurse Practitioner Family; Visit Provider Dietitian, Registered
DX: E66.01 Morbid (severe) obesity due to excess calories (principal)

== ENCOUNTER → 2024-07-24 10:53 | Outpatient (BNVA) | payer OTHER, SELFPAY | PROVIDERS: PCP Nurse Practitioner Family; Visit Provider Internal Medicine Endocrinology, Diabetes & Metabolism | DX: E66.01 Morbid (severe) obesity due to excess calories (principal); Z68.41 Body mass index [BMI] 40.0-44.9, adult; Z71.3 Dietary counseling and surveillance; Z79.899 Other long term (current) drug therapy | CPT/HCPCS: 97802 ==

== ENCOUNTER 2024-08-18 09:25 | Outpatient (REF) | payer OTHER, SELFPAY ==
[2024-08-18 11:12] LABS: MANUAL DIFF FLAG NO
[2024-08-18 11:33] LABS: Basophils Absolute Auto 0.1 X10*3/uL (0.0-0.2); Basophils Percent Auto 0.7 % (0-2); Eosinophils Absolute Auto 0.2 X10*3/uL (0.0-0.4); Eosinophils Percent Auto 1.8 % (0-4); Hematocrit 48.7 % (42.0-52.0); Hemoglobin 16.3 g/dl (14.0-18.0); Imm Gran Abs Auto 0.02 X10*3/uL (0.00-0.03); Imm Gran Pct Auto 0.2 % (0.0-0.4); Lymphocytes Absolute Auto 2.1 X10*3/uL (1.2-4.9); Lymphocytes Percent Auto 23.3 % (20-40); Mean Corpuscular HGB Conc 33.5 g/dl (31.0-36.0); Mean Corpuscular Hemoglobin 28.9 pg (27.0-33.0); Mean Corpuscular Volume 86.3 fL (80.0-98.0); Mean Platelet Volume 9.7 fL (9.4-12.4); Monocytes Percent Auto 11.3 % (2-11); Neutrophils Absolute Auto 5.6 x10*3/uL (2.0-8.3); Neutrophils Percent Auto 62.7 % (45-73); Platelet Count 268 X10*3/uL (160-400); Red Blood Count 5.64 X10*6/uL (4.60-5.80); Red Cell Distribution Width 12.4 % (11.0-16.0)
[2024-08-18 11:35] LABS: Appearance Urine Clear; Color Urine Yellow; Glucose Urine UA Negative (Negative); Leukocyte Esterase Urine Negative (Negative); Nitrite Urine Negative (Negative); Specific Gravity - Urine 1.015 (1.005-1.025); Urine Blood Negative (Negative); Urine Ketones Negative (Negative); Urine Protein Negative (Neg-Trace)
[2024-08-18 11:52] LABS: Albumin Level 4.3 g/dL (3.5-5.0); Alkaline Phosphatase 83 U/L (39-117); Anion Gap 12 (12-20); Aspartate Amino Transferase 26 U/L (5-37); Bilirubin Total 0.8 mg/dL (0.0-1.0); Blood Urea Nitrogen 9 mg/dL (9-16); Calcium 9.4 mg/dL (8.4-10.2); Carbon Dioxide 26 mmol/L (22-29); Chloride 105 mmol/L (96-108); Cholesterol 177 mg/dL (<200); Estimated Glomerular Filt Rate > 60; Glucose Fasting 86 mg/dL (60-99); HDL Cholesterol 31 mg/dL (>40); LDL Cholesterol Calculated 125 mg/dL (<100); Sodium 139 mmol/L (135-145); Triglycerides 108 mg/dL (<150)
[2024-08-18 12:05] LABS: Alanine Aminotransferase 31 U/L (0-40)
[2024-08-18 12:11] LABS: TSH reflex Free T4 1.16 uIU/mL (0.32-4.0)
[2024-08-24 16:17] LABS: Class Alternaria alternata 0; Class Aspergillus fumigatus 0; Class Bermuda Grass 0; Class Birch 0; Class Cat Dander 0; Class Cladosporium herbarum 0; Class Cockroach 0; Class Common Ragweed 0; Class Cottonwood 0; Class Derm. pterony 0; Class Dermatophagoides farinae 0; Class Dog Dander 0; Class Elm 0; Class Maple Box Elder 0; Class Mountain Cedar 0; Class Mouse Urine Protein 0; Class Mugwort 0; Class Oak 0; Class Penicillium crysogenum 0; Class Rough Pigweed 0; Class Sheep Sorrel 0; Class Sycamore 0; Class Timothy Grass 0; Class Walnut Tree 0; Class White Ash 0; Class White Mulberry 0; D001 IgE D pteronyssinus <0.10 kU/L; D002 - IgE D farinae <0.10 kU/L; E001 - IgE Cat Dander <0.10 kU/L; E005 - IgE Dog Dander <0.10 kU/L; E072-IgE Mouse Urine <0.10 kU/L; G002 IgE Bermuda Grass <0.10 kU/L; G006 - IgE Timothy Grass <0.10 kU/L; I006-IgE Cockroach, German <0.10 kU/L; Immunoglobulin E 22 kU/L (<OR=114); M001 IgE Penicillium chrysogen <0.10 kU/L; M002 - IgE Cladosporium herbar <0.10 kU/L; M003 - IgE Aspergillus fumigat <0.10 kU/L; M006 - IgE Alternaria alternat <0.10 kU/L; T001 IgE Maple/Box Elder <0.10 kU/L; T003 IgE Common Silver Birch <0.10 kU/L; T006 - IgE Cedar, Mountain <0.10 kU/L; T007 - IgE Oak, White <0.10 kU/L; T008 IgE Elm, American <0.10 kU/L; T010 - IgE Walnut <0.10 kU/L; T011 - IgE Maple Leaf Sycamore <0.10 kU/L; T014 - IgE Cottonwood <0.10 kU/L; T015 - IgE Ash, White <0.10 kU/L; T070 - IgE White Mulberry <0.10 kU/L; W001 - IgE Ragweed, Short <0.10 kU/L; W006 - IgE Mugwort <0.10 kU/L; W014 IgE Pigweed, Common <0.10 kU/L; W018 IgE Sheep Sorrel <0.10 kU/L
== END 2024-08-18 09:26 | disposition home or self-care (01) ==
LOC: HO.HMGCLDS 09:25
PROVIDERS: PCP Nurse Practitioner Family; Visit Provider Nurse Practitioner Family
DX: Z00.00 Encounter for general adult medical examination without abnormal findings (principal); R05.3 Chronic cough
CPT/HCPCS: 36415; 80053; 80061; 81003; 82785; 84443; 85025; 86003

== ENCOUNTER 2024-08-18 09:45 | Outpatient (AMB) | payer OTHER, SELFPAY ==
[2024-08-18 10:16] VITALS: BP 102/70; PULSE 83; RESP 15; TEMP 36.7; O2SAT 96; BMI 40.0
--- NOTE | 2024-08-18 10:16 | AM.OFFWIN_ITS ---
Intake Vital Signs 08/18/24 10:16 Height 5 ft 6 in Weight 248 lb BMI 40.0 BP 102/70 Blood Pressure Location Lt brachial Position Sitting Respiration 15 Pulse 83 Pulse Source Pulse Oximeter Temp 98.1 F Temp Source Oral Pulse Oximetry (%) 96 Oxygen Delivery Method Room Air Intake Visit Reasons: EP-?sinus infection Intake Note: Pt is here today c/o nasal congestion,cough sinus pressure [id number] Patient Tobacco Use Status: Never used Tobacco Allergies amoxicillin Allergy (Unknown, Verified 08/18/24 10:32) nausea/vomitting sumatriptan Allergy (Unknown, Verified 08/18/24 10:32) nausea/vomiting HPI HPI Comments History of Present Illness Details History - The patient is a 38-year-old male pres enting with concerns of sinusitis. - Symptoms began approximately two weeks ago with a cough, progressing to runny and stuffy nose. - Sharp sinus pain developed approximate ly five days ago. - Previous treatments include Xyzal for allergies and inhalers, with no improvement. - History of Amoxicillin allergy noted - The patient experiences exacerbations of sinusitis approximately twice a year, generally requiring antibiotic treatment. - While previously experiencing shortnes s of breath and dry cough, the shortness of breath has since resolved. - He uses warm showers and tea tree oil to help alleviate congestion, but symptoms remain severe. Physical Exam General: Cooperative, healthy appearing, comfortable and no acute distress Orientation/consciousness: Patient oriented x3 Limitations: No limitations Head: Normal to inspection Ears: Hearing grossly normal bilaterally, external ears normal and TM's normal bilaterally Nose: Runny, stuffy nose present Face and sinus: Normal facial exam and maxillary sinuses tender Mouth: Normal oral and palatal mucosa present and moist mucous membranes Throat: Yes tonsils normal, Yes uvula midline. Posterior oropharynx erythema Eyes: Appearance normal, both eyes and all related structures Neck: Normal visual inspection Respiratory: Clear to auscultation bilaterally. Normal respiratory effort, able to speak in complete sentences, Actively coughing, no respiratory distress, not tachypneic, no tripod positioning and no use of accessory muscles Cardiovascular: Regular rate and rhythm. Normal S1 and S2 Skin: No rashes or lesions noted Neuro: Patient oriented x3 Extremities: Normal to inspection and Yes no clubbing, cyanosis or edema [facility] Medical History (Updated 08/18/24 @ 10:46 by Kirstin Barth PA-C) EMILY (obstructive sleep apnea) Morbid obesity Cough variant asthma Allergic rhinitis Lateral epicondylitis, right elbow Surgical History Hx of removal of cyst Hx of elbow surgery Family History Father Mental health disorder Family history of diabetes mellitus Maternal Uncle Substance use disorder Family history of diabetes mellitus Paternal Uncle Substance use disorder Social History Housing: House Patient Tobacco Use Status: Never used Tobacco e-Cigarette/Vaping Use: Never Used Second Hand Smoke Exposure: No service: No Current occupational status: employed Current occupation: [employer] Cognitive needs: No Hearing needs: No Vision needs: No Review of Systems Const All systems reviewed & are unremarkable except as noted in HPI and below Physical Exam Vital Signs: Last Vital Signs Temp 98.1 F 08/18/24 10:16 Pulse 83 08/18/24 10:16 Resp 15 08/18/24 10:16 BP 102/70 08/18/24 10:16 Pulse Ox 96 08/18/24 10:16 Oxygen Delivery Method Room Air 08/18/24 10:16 BMI result Body Mass Index 40.0 Assessment & Plan Assessment & Plan (1) Acute bacterial sinusitis: Code(s): J01.90 - Acute sinusitis, unspecified; B96.89 - Other specified bacterial agents as the cause of diseases classified elsewhere Plan: VSS, pt well appearing and PE remarkable for maxillary sinus tenderness. Due to the patient's presentation consistent with >2wks of sinusitis, and with the severity of symptoms, I have decided to initiate treatment with antibiotics, taking into consideration his allergy to Amoxicillin and prescribing A zithromycin. Additionally, a prednisone burst will be provided to reduce inflammation and manage pain. Other recommendations for managing allergic rhinitis include the continued use of Xyzal and the addition of Fluticasone nasal spray. If symptoms fail to improve or worsen, the patient should follow up at his next scheduled appointment with his regular provider. Patient was informed and verbally consented to the use of an ambient scribe for clinic note documentation during this visit Medications: New prednisone 20 mg PO QAM 5 tabs 0RF azithromycin For 250 mg dose pack: take 500 mg today (day 1), then 250 mg for 4 days (days 2-5) PO 6 tabs 0RF Coding Level of Care Code Est Pt Level 3 (69683) Diagnoses Acute bacterial sinusitis J01.90; B96.89
== END 2024-08-18 10:49 | disposition home or self-care (01) ==
PROVIDERS: PCP Nurse Practitioner Family; Visit Provider Physician Assistant
DX: J01.90 Acute sinusitis, unspecified (principal); B96.89 Other specified bacterial agents as the cause of diseases classified elsewhere

== ENCOUNTER 2024-08-30 15:21 | Outpatient (AMB) | payer OTHER, SELFPAY ==
[2024-08-30 15:29] VITALS: BP 118/70; PULSE 84; RESP 14; TEMP 36.8; O2SAT 99; BMI 40.7
--- NOTE | 2024-08-30 15:29 | MHC.PC.OV ---
Vital Signs 08/30/24 15:29 Height 5 ft 6 in Weight 252 lb BMI 40.7 BP 118/70 Respiration 14 Pulse 84 Pulse Source Pulse Oximeter Temp 98.2 F Temp Source Oral Pulse Oximetry (%) 99 Oxygen Delivery Method Room Air Intake Visit Reasons: 6 month follow up Implementation Advisor Required: No Accompanied by: Self / Same As Patient Allergies amoxicillin Allergy (Unknown, Verified 08/30/24 15:30) nausea/vomitting sumatriptan Allergy (Unknown, Verified 08/30/24 15:30) nausea/vomiting Tobacco use date assessed: 08/30/24 Dental Screening Dental Screen Date: 08/30/24 Did you have a dental visit in the last 12 months?: Yes Did you have a dental problem in the last 6 months where you did not have access to dental care?: No Was dental information given to patient?: Patient has dentist HPI 6 month follow up HPI Details Chief Complaint Persistent nasal congestion and sinus pressure History of Present Illness The patient is a 38-year-old male presenting with chronic sinusitis. He has experienced persistent symptoms for the past year, including daily nasal congestion, sinus pressure, and the expectoration of discolored sputum. These symptoms occur year-round and are somewhat alleviated by antibiotic therapy, which has been administered multiple times. Despite allergy testing showing no allergens and imaging indicating a deviated nasal septum, the patient's symptoms persist. He has attempted various medications, such as cetirizine and nasal sprays, most recently xyzal, without significant improvement. Social History Health Maintenance Review of Systems - Respiratory: Reports nasal congestion and expectoration of discolored sputum. - ENT: Reports sinus pressure and ear pressure. - Allergy/Immunology: Denies known allergens. Physical Exam General: Cooperative, healthy appearing, comfortable, no acute distress and well developed Orientation: Patient oriented x3 Limitations: No limitations Head: Normal to inspection Ears: Hearing grossly normal bilaterally Nose: Normal external nose present, no nasal polyps seen Face and sinus: Normal facial exam, neg sinus pressure currently Eyes: Appearance normal, both eyes and all related structures Neck: Normal visual inspection and Yes full ROM Respiratory: Normal respiratory effort and able to speak in complete sentences. Clear to auscultation bilaterally Cardiovascular: Regular rate and rhythm. Normal S1 and S2 GI: Normal to inspection. Soft to palpation and nontender Skin: No rashes or lesions noted Neuro: Patient oriented x3 Extremities: Normal to inspection Results - Imaging: CT scan of the face from last year showing leftward osseous spurring of the nasal septum. - Allergy Testing: Recent RAST test indicating no allergens, seen by lead handler, no allergies were found Plan I am referring the patient to an greenhouse instructor for further evaluation of possible anatomic variances contributing to his chronic sinusitis. Previous treatments, including cetirizine and xyzol, have been ineffective, and further assessment is warranted to explore potential surgical interventions. Discussion Notes During our discussion, I explained the possible role of anatomic variances, such as the deviated nasal septum, in the patient's persistent symptoms of chronic sinusitis. We reviewed the ineffectiveness of previous medications, including cetirizine and Xyzol. I recommended a referral to an ENT for further evaluation. The patient was informed of the potential benefits and need for further assessment, and he agreed to proceed with the referral. Patient Instructions - Follow up with the greenhouse instructor as referred. - Continue current medications as previously prescribed. - Monitor symptoms and report any worsening to the healthcare provider. - Seek medical care if experiencing severe breathing difficulties or new symptoms. [facility] Medical History EMILY (obstructive sleep apnea) Morbid obesity Cough variant asthma Allergic rhinitis Lateral epicondylitis, right elbow Surgical History Hx of removal of cyst Hx of elbow surgery Family History Father Mental health disorder Family history of diabetes mellitus Maternal Uncle Substance use disorder Family history of diabetes mellitus Paternal Uncle Substance use disorder Social History Housing: House Alcohol intake: current Alcohol intake frequency: a few times a month Patient Tobacco Use Status: Never used Tobacco e-Cigarette/Vaping Use: Never Used Second Hand Smoke Exposure: No service: No Current occupational status: employed Current occupation: [employer] Cognitive needs: No Hearing needs: No Vision needs: No Questionnaire PHQ-9 Over the last 2 weeks, how often have you been bothered by any of the following problems? 1. Little interest or pleasure in doing things: not at all 2. Feeling down, depressed, or hopeless: not at all 3. Trouble falling or staying asleep, or sleeping too much: not at all 4. Feeling tired or having little energy: not at all 5. Poor appetite or overeating: not at all 6. Feeling bad about yourself - or that you are a failure or have let yourself or your family down: not at all 7. Trouble concentrating on things, such as reading the newspaper or watching television: not at all 8. Moving or speaking so slowly that other people could have noticed. Or the opposite - being so fidgety or restless that you have been moving around a lot more than usual: not at all 9. Thoughts that you would be better off or of hurting yourself in some way: not at all Total score: 0 Source: Developed by Drs. Joshua Rhoades, Eveline Shay, Branden Moura and colleagues, with an educational juan from [employer]. Thrive Questionnaire Date Thrive assessed: 08/27/24 I am a: Patient What is your living situation today?: I have a steady place to live Within the past 12 months, did the food you bought not last and you didn't have the money to get more?: Never true Within the past 12 months, did you worry whether your food would run out before you got money to buy more?: Never true Do you have trouble paying for medicines?: No Do you have trouble getting transportation to medical appointments?: No Do you have trouble paying your heating and electricity bill?: No Do you have trouble taking care of your child, family member or friend?: No Do you have trouble with day-to-day activities such as bathing, preparing meals, shopping, managing finances, etc.?: No Are you currently unemployed and looking for a job?: No Are you interested in more education?: No Please select the resources that you would like help with: None Currently or been in a relationship where the following occur: No concerns reported THRIVE Score: 0 AUDIT C Alcohol Use Questionnaire (AUDIT-C) 1. How often do you have a drink containing alcohol?: Monthly or less 2. How many drinks containing alcohol do you have on a typical day when you are drinking?: 3 or 4 3. How often do you have six or more drinks on one occasion?: Less than monthly Total Score: 3 ZULAY-7 AMB Questionnaire ZULAY-7 Date ZULAY - 7 assessed: 08/30/24 Feeling nervous, anxious, or on edge: 0 = Not at all Not being able to stop or control worryin = Not at all Worrying too much about different things: 0 = Not at all Trouble relaxin = Not at all Being so restless that it is hard to sit still: 0 = Not at all Becoming easily annoyed or irritable: 0 = Not at all Feeling afraid as if something awful might happen: 0 = Not at all Total ZULAY-7 score (0-4 normal; 5-9 mild; 10-14 moderate; 15-21 severe): 0 Source: Developed by Drs. Joshua Rhoades, Eveline Shay, Branden Moura and colleagues, with an educational juan from [employer]. Physical exam (Primary Care) Vital Signs: Last Vital Signs Temp 98.2 F 08/30/24 15:29 Pulse 84 08/30/24 15:29 Resp 14 08/30/24 15:29 BP 118/70 08/30/24 15:29 Pulse Ox 99 08/30/24 15:29 Oxygen Delivery Method Room Air 08/30/24 15:29 BMI result Body Mass Index 40.7 Tobacco/Smoking Status: Tobacco use Status Tobacco use date assessed 08/30/24 08/30/24 15:39 Patient Tobacco Use Status Never used Tobacco 08/30/24 15:39 e-Cigarette/Vaping Use Never Used 08/30/24 15:39 PHQ-9: PHQ-9 Score PHQ-9: Total score 0 08/30/24 15:39 Thrive Assessment: Date of Thrive Assessment Date Thrive assessed 08/27/24 08/30/24 15:39 Currently or been in a relationship where the following occur: No concerns reported Coding Level of Care Code Est Pt Level 3 (08245) Diagnoses Chronic sinus infection J32.9 Assessment & Plan Assessment & Plan (1) Chronic sinus infection: Code(s): J32.9 - Chronic sinusitis, unspecified Category: Medical Plan . Orders: Referrals Ear/Nose/Throat Referral J32.9 - Chronic sinusitis, unspecified Scribe Plan - Not visible on output: .
== END 2024-08-30 16:14 | disposition home or self-care (01) ==
LOC: HO.HMCC 15:22
PROVIDERS: PCP Nurse Practitioner Family; Visit Provider Nurse Practitioner Family
DX: J32.9 Chronic sinusitis, unspecified (principal)

== ENCOUNTER → 2024-08-30 15:21 | Outpatient (BNVA) | payer OTHER, SELFPAY | PROVIDERS: PCP Nurse Practitioner Family; Visit Provider Nurse Practitioner Family | DX: Z13.89 Encounter for screening for other disorder (principal) ==

== ENCOUNTER 2024-09-04 13:00 | Outpatient (AMB) | payer OTHER, SELFPAY ==
[2024-09-04 13:09] VITALS: BMI 40.2
--- NOTE | 2024-09-04 13:09 | A.OFFVIS_ITS ---
VS Expanded 09/04/24 13:09 Height 5 ft 6 in Weight 249 lb 1.957 oz BMI 40.2 Intake Visit Reasons: f/u obesity Allergies amoxicillin Allergy (Unknown, Verified 09/04/24 13:49) nausea/vomitting sumatriptan Allergy (Unknown, Verified 09/04/24 13:49) nausea/vomiting Nutrition Presentation Details: Pt presents for MNT f/u for obesity Pt on medication management, Zepbound 5mg weekly . Pt reports gradually working on mindful eating Today will review low fat food options BS Monitoring Most Recent Diabetes Results: Cholesterol 177 mg/dL (<200) 08/18/24 HDL Cholesterol 31 mg/dL (>40) L 08/18/24 Triglycerides 108 mg/dL (<150) 08/18/24 Creatinine 0.84 mg/dL (0.5-1.4) 08/18/24 Blood Urea Nitrogen 9 mg/dL (9-16) 08/18/24 Sodium 139 mmol/L (135-145) 08/18/24 Potassium 4.0 mmol/L (3.3-5.1) 08/18/24 Chloride 105 mmol/L (96-108) 08/18/24 Carbon Dioxide 26 mmol/L (22-29) 08/18/24 Calcium 9.4 mg/dL (8.4-10.2) 08/18/24 AST 26 U/L (5-37) 08/18/24 ALT 31 U/L (0-40) 08/18/24 Total Protein 8.0 g/dL (6.5-8.0) 08/18/24 Albumin 4.3 g/dL (3.5-5.0) 08/18/24 [facility] Medical History EMILY (obstructive sleep apnea) Morbid obesity Cough variant asthma Allergic rhinitis Lateral epicondylitis, right elbow Surgical History Hx of removal of cyst Hx of elbow surgery Family History Father Mental health disorder Family history of diabetes mellitus Maternal Uncle Substance use disorder Family history of diabetes mellitus Paternal Uncle Substance use disorder Social History (Reviewed 09/04/24 @ 13:49 by PRERNA Andrea Housing: House Alcohol intake: current Alcohol intake frequency: a few times a month Patient Tobacco Use Status: Never used Tobacco e-Cigarette/Vaping Use: Never Used Second Hand Smoke Exposure: No service: No Current occupational status: employed Current occupation: [employer] Cognitive needs: No Hearing needs: No Vision needs: No Assessment & Plan Assessment & Plan (1) Morbid obesity: Code(s): E66.01 - Morbid (severe) obesity due to excess calories Category: Medical Plan: Wt: 116 Kg ( 07/27 ), 113kg (09/26) Est kcal needs as per MSJ: 2800 - 500 calories = 2300 (40% carb, 30% protein/fat) Est fluid needs as per 25-30 ml/d: 3400 Est prot per day as per 1 g/kg bw: 110 Recommend fiber intake : 8-10 g per day and gradually increase to 25-28 g per day for women and 35-38 g for men or as tolerated Recommend sodium intake per day : less than 2000 mg Educated patient on: ( R = reviewed V = verbalizes understanding N/R = needs review N/A = not applicable * Food sources of carbohydrate, adequate serving sizes and its role in various health conditions: R * Differences between complex carbohydrates a simple carbohydrates, role of fiber in diet: R * Lean protein sources of foods: R V NR * Differences between types of fats and role in diet (mono on saturated fat fatty acids, saturated fatty acids, trans fats): R * Food sources of sodium in salt and healthy modifications for heart health in kidney health: R V R/V * Vitamins and minerals: R V N/R * Healthy plate method concept: R V N/R * Physical activity: Benefits a precaution: R * Patient Instructions: Continue working on mindful eating Choose lower fat protein foods and work on reducing amount of fat (and visible and hidden fats ) , particularly saturated fats including cheese Coding Level of Care Code Nutr Indiv Subseq (58115) Diagnoses Morbid obesity E66.01 Time Spent (min) 30
== END 2024-09-04 14:15 | disposition home or self-care (01) ==
LOC: HO.ENCR 13:01
PROVIDERS: PCP Nurse Practitioner Family; Visit Provider Dietitian, Registered
DX: E66.01 Morbid (severe) obesity due to excess calories (principal)

== ENCOUNTER 2024-09-04 13:00 | Outpatient (AMB) | payer OTHER, SELFPAY ==
--- NOTE | 2024-09-04 13:18 | A.OFFVIS_ITS ---
Vital Signs 09/04/24 13:47 Height 5 ft 6 in Weight 250 lb 7.122 oz BMI 40.4 BP 114/82 Blood Pressure Location Rt brachial Position Sitting Pulse 86 Pulse Source Pulse Oximeter Pulse Oximetry (%) 96 Oxygen Delivery Method Room Air Intake Visit Reasons: f/u obesity Intake Note: Patient present here today for a follow-up on Obesity. 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 Accompanied by: Self / Same As Patient Allergies amoxicillin Allergy (Unknown, Verified 09/04/24 13:49) nausea/vomitting sumatriptan Allergy (Unknown, Verified 09/04/24 13:49) nausea/vomiting Medication List - Last Reconciled 09/04/24 by Joshua Joshi MD albuterol sulfate 90 mcg/actuation 1 inh inhalation QID PRN fluticasone furoate 27.5 mcg/actuation (Flonase Sensimist) 2 sprays intranasal DAILY levocetirizine (Xyzal) 5 mg PO DAILY montelukast 10 mg PO BEDTIME 90 days omeprazole 20 mg PO BEDTIME tirzepatide (weight loss) (Zepbound) 5 mg (0.5 mL) subcut QWEEK HPI Comments Details: This is a 38-year-old white male sent to endocrinology for evaluation of obesity. Weight gain occurred 20 lb over 2 yrs . Patient has tried diets of portion control . Patient has seen a brick catcher yrs ago at [facility] . There was no history of hypothyroidism. There are no symptoms of [place] syndrome. Medications prescribed are Wegovy . Dad has [place]'s Dx. Does not have sleep apnea , No loss of libido Currently on Zepbound 5 mg Q weekly The patient is a 38-year-old male presenting for a follow-up on weight management. He has been managing obesity with pharmacotherapy, currently at a 5 mg dose. Since transitioning from an initial dose of 2.5 mg, the patient has observed an additional weight loss without the severity of previous side effects like nausea, which was initially problematic. He adjusted by scheduling medication intake on weekends to prevent work disruption. The patient's response to the 5 mg dosage has been positive, with a noticeable decrease in nausea, now occurring briefly upon waking and improved with food intake. He aims to achieve sustainable weight management and physical health improvement, continuing the current dosage with the possibility to adjust as needed. He appreciates the support and resources provided, including the Learn program, and plans to utilize these for further behavioral changes and education. [facility]LY [facility] Medical History EMILY (obstructive sleep apnea) Morbid obesity Cough variant asthma Allergic rhinitis Lateral epicondylitis, right elbow Surgical History Hx of removal of cyst Hx of elbow surgery Family History Father Mental health disorder Family history of diabetes mellitus Maternal Uncle Substance use disorder Family history of diabetes mellitus Paternal Uncle Substance use disorder Social History Housing: House Alcohol intake: current Alcohol intake frequency: a few times a month Patient Tobacco Use Status: Never used Tobacco e-Cigarette/Vaping Use: Never Used Second Hand Smoke Exposure: No service: No Current occupational status: employed Current occupation: [employer] Cognitive needs: No Hearing needs: No Vision needs: No Assessment & Plan Assessment & Plan (1) Morbid obesity: Code(s): E66.01 - Morbid (severe) obesity due to excess calories Category: Medical Plan: This is a 38-year-old white male with a history of morbid obesity. He appears to be clinically and biochemically euthyroid. Currently on Zepbound 5 mg Q weekly 1. Obesity The patient will maintain the 5 mg dosage, with continued monitoring for weight loss and side effect profile. Consideration for increased dosage remains should plateau occur. No immediate changes are required. 2. Medication-induced nausea Nausea has lessened with 5 mg medication. Monitoring and dietary management upon waking are sufficient at this time. During the visit, we discussed the effectiveness of the 5 mg dosage in managing obesity and the resulting weight loss. The patient has tolerated this regimen well, with a significant reduction in nausea compared to the initial 2.5 mg dose. We explored the potential for dosage adjustments in response to weight stabilization while emphasizing a stable approach towards weight management. We discussed the Learn program for behavioral support in overeating, which the patient found valuable. Follow-up is planned, targeting continued weight loss and monitoring potential dose adjustment. - Continue taking the 5 mg medication as prescribed. - Monitor for weight changes or stabilization. - Manage brief morning nausea with food intake. - Incorporate Learn program strategies for behavioral changes. - Return for follow-up in 3-4 months for reassessment. The patient had an opportunity to ask questions regarding treatment plan. The patient expressed understanding and agreement with the above treatment plan. Patient was informed and verbally consented to the use of an ambient scribe for clinic note documentation during this visit. Coding Level of Care Code Est Pt Level 3 (97639) Diagnoses Morbid obesity E66.01
[2024-09-04 13:47] VITALS: BP 114/82; PULSE 86; O2SAT 96; BMI 40.4
== END 2024-09-04 14:14 | disposition home or self-care (01) ==
LOC: HO.ENCR 13:01
PROVIDERS: PCP Nurse Practitioner Family; Visit Provider Nurse Practitioner Adult Health
DX: E66.01 Morbid (severe) obesity due to excess calories (principal)
CPT/HCPCS: 99213

== ENCOUNTER → 2024-09-04 13:00 | Outpatient (BNVA) | payer OTHER, SELFPAY | PROVIDERS: PCP Nurse Practitioner Family; Visit Provider Dietitian, Registered | DX: E66.01 Morbid (severe) obesity due to excess calories (principal); Z68.41 Body mass index [BMI] 40.0-44.9, adult; Z71.3 Dietary counseling and surveillance | CPT/HCPCS: 97803 ==

== ENCOUNTER 2024-11-22 08:51 | Outpatient (AMB) | payer OTHER, SELFPAY ==
--- NOTE | 2024-11-22 08:59 | MHC.AMNUTRGE ---
VS Expanded 11/22/24 09:00 Height 5 ft 6 in Weight 238 lb 5.115 oz BMI 38.5 Intake Visit Reasons: Obesity Allergies amoxicillin Allergy (Unknown, Verified 09/04/24 13:49) nausea/vomitting sumatriptan Allergy (Unknown, Verified 09/04/24 13:49) nausea/vomiting Nutrition Presentation Details: Pt presents for MNT f/u for Obesity Pt is on zepbound 5 mg/wk for weight loss, Pt reports working on increasing on fiber intake to prevent constipation and reports doing well Working on meal routine and meal prep Choosing lean protein foods aiming at 60-90 g protein/d Physical activity: walking 40 min 3- 4 times/wk BS Monitoring Most Recent Diabetes Results: Cholesterol, (<200) 177 mg/dL 08/18/24 HDL Cholesterol, (>40) 31 mg/dL L 08/18/24 Triglycerides, (<150) 108 mg/dL 08/18/24 Creatinine, (0.5-1.4) 0.84 mg/dL 08/18/24 BUN, (9-16) 9 mg/dL 08/18/24 Sodium, (135-145) 139 mmol/L 08/18/24 Potassium, (3.3-5.1) 4.0 mmol/L 08/18/24 Chloride, (96-108) 105 mmol/L 08/18/24 Carbon Dioxide, (22-29) 26 mmol/L 08/18/24 Calcium, (8.4-10.2) 9.4 mg/dL 08/18/24 AST, (5-37) 26 U/L 08/18/24 ALT, (0-40) 31 U/L 08/18/24 Total Protein, (6.5-8.0) 8.0 g/dL 08/18/24 Albumin, (3.5-5.0) 4.3 g/dL 08/18/24 [facility] Medical History EMILY (obstructive sleep apnea) Morbid obesity Cough variant asthma Allergic rhinitis Lateral epicondylitis, right elbow Surgical History Hx of removal of cyst Hx of elbow surgery Family History Father Mental health disorder Family history of diabetes mellitus Maternal Uncle Substance use disorder Family history of diabetes mellitus Paternal Uncle Substance use disorder Social History Housing: House Alcohol intake: current Alcohol intake frequency: a few times a month Patient Tobacco Use Status: Never used Tobacco e-Cigarette/Vaping Use: Never Used Second Hand Smoke Exposure: No service: No Current occupational status: employed Current occupation: [employer] Cognitive needs: No Hearing needs: No Vision needs: No Assessment & Plan Assessment & Plan (1) Morbid obesity: Code(s): E66.01 - Morbid (severe) obesity due to excess calories Category: Medical Plan: Wt: 116 Kg ( 07/27 ), 113kg (09/26), 108 kg(11/26) Est kcal needs as per MSJ: 2800 - 500 calories = 2300 (40% carb, 30% protein/fat) Est fluid needs as per 25-30 ml/d: 3200 Est prot per day as per 1 g/kg bw: 100 Recommend fiber intake : 8-10 g per day and gradually increase to 25-28 g per day for women and 35-38 g for men or as tolerated Recommend sodium intake per day : less than 2000 mg Educated patient on: ( R = reviewed V = verbalizes understanding N/R = needs review N/A = not applicable Food sources of carbohydrate, adequate serving sizes and its role in various health conditions: R Differences between complex carbohydrates a simple carbohydrates, role of fiber in diet: R Lean protein sources of foods: R V Differences between types of fats and role in diet (mono on saturated fat fatty acids, saturated fatty acids, trans fats): R Food sources of sodium in salt and healthy modifications for heart health in kidney health: R V R/V Vitamins and minerals, fish oils : R Healthy plate method concept: R Physical activity: Benefits a precaution: R , V Patient Instructions: Continue working on following healthy plate method, choosing lean protein foods Keep hydrated by having water/low sugar fluids with elieser/snacks, 10-12 cups/day , fruits and veg also have water in them Include food sources of omega 3 at least 3 times weeek (nuts/seeds/fish oils Coding Level of Care Code Nutr Indiv Subseq (21952) Diagnoses Morbid obesity E66.01 Time Spent (min) 30
[2024-11-22 09:00] VITALS: BMI 38.5
== END 2024-11-22 09:39 | disposition home or self-care (01) ==
LOC: HO.ENCR 08:52
PROVIDERS: PCP Nurse Practitioner Family; Visit Provider Dietitian, Registered
DX: E66.01 Morbid (severe) obesity due to excess calories (principal)

== ENCOUNTER → 2024-11-22 08:51 | Outpatient (BNVA) | payer OTHER, SELFPAY | PROVIDERS: PCP Nurse Practitioner Family; Visit Provider Dietitian, Registered | DX: E66.01 Morbid (severe) obesity due to excess calories (principal); Z68.38 Body mass index [BMI] 38.0-38.9, adult; Z71.3 Dietary counseling and surveillance | CPT/HCPCS: 97803 ==

== ENCOUNTER 2024-12-05 15:21 | Outpatient (AMB) | payer OTHER, SELFPAY ==
--- NOTE | 2024-12-05 15:24 | MHC.OFFVIS ---
Vital Signs 12/05/24 15:25 Height 5 ft 6 in Weight 239 lb 3.225 oz BMI 38.6 BP 102/70 Blood Pressure Location Rt brachial Position Sitting Pulse 77 Pulse Source Pulse Oximeter Pulse Oximetry (%) 97 Oxygen Delivery Method Room Air Intake Visit Reasons: obesity Intake Note: Patient present today to follow up on Weight Management. 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 Accompanied by: Self / Same As Patient Allergies amoxicillin Allergy (Unknown, Verified 12/05/24 15:26) nausea/vomitting sumatriptan Allergy (Unknown, Verified 12/05/24 15:26) nausea/vomiting Medication List - Last Reconciled 12/05/24 by Joshua Joshi MD albuterol sulfate 90 mcg/actuation 1 inh inhalation QID PRN fluticasone furoate 27.5 mcg/actuation (Flonase Sensimist) 2 sprays intranasal DAILY levocetirizine (Xyzal) 5 mg PO DAILY montelukast 10 mg PO BEDTIME 90 days omeprazole 20 mg PO BEDTIME tirzepatide (weight loss) (Zepbound) 5 mg (0.5 mL) subcut QWEEK HPI Comments Details: This is a 39-year-old white male sent to endocrinology for evaluation of obesity. Weight gain occurred 20 lb over 2 yrs . Patient has tried diets of portion control . 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 There was no history of hypothyroidism. There are no symptoms of [place] syndrome. Medications prescribed are Wegovy . Dad has [place]'s Dx. Does not have sleep apnea , No loss of libido Currently on Zepbound 5 mg Q weekly. Lost 11 lb since last visit [facility] Medical History EMILY (obstructive sleep apnea) Morbid obesity Cough variant asthma Allergic rhinitis Lateral epicondylitis, right elbow Surgical History Hx of removal of cyst Hx of elbow surgery Family History Father Mental health disorder Family history of diabetes mellitus Maternal Uncle Substance use disorder Family history of diabetes mellitus Paternal Uncle Substance use disorder Social History Housing: House Alcohol intake: current Alcohol intake frequency: a few times a month Patient Tobacco Use Status: Never used Tobacco e-Cigarette/Vaping Use: Never Used Second Hand Smoke Exposure: No service: No Current occupational status: employed Current occupation: [employer] Cognitive needs: No Hearing needs: No Vision needs: No Physical Exam Vital Signs: Last Vital Signs Pulse 77 12/05/24 15:25 BP 102/70 12/05/24 15:25 Pulse Ox 97 12/05/24 15:25 Oxygen Delivery Method Room Air 12/05/24 15:25 BMI result Body Mass Index 38.6 Assessment & Plan Assessment & Plan (1) Morbid obesity: Code(s): E66.01 - Morbid (severe) obesity due to excess calories Category: Medical Plan: This is a 38-year-old white male with a history of morbid obesity. He appears to be clinically and biochemically euthyroid. Currently on Zepbound 5 mg Q weekly with an additional 11 lb weight loss Plan is to continue the current treatment. Coding Level of Care Code Est Pt Level 3 (09878) Diagnoses Morbid obesity E66.01
[2024-12-05 15:25] VITALS: BP 102/70; PULSE 77; O2SAT 97; BMI 38.6
== END 2024-12-05 16:02 | disposition home or self-care (01) ==
LOC: HO.ENCR 15:22
PROVIDERS: PCP Nurse Practitioner Family; Visit Provider Internal Medicine Endocrinology, Diabetes & Metabolism
DX: E66.01 Morbid (severe) obesity due to excess calories (principal)
CPT/HCPCS: 99213

== ENCOUNTER 2025-04-01 08:53 | Outpatient (AMB) | payer OTHER, SELFPAY ==
[2025-04-01 09:08] VITALS: BP 100/74; PULSE 88; O2SAT 98; BMI 37.6
--- NOTE | 2025-04-01 09:08 | MHC.OFFVIS ---
Vital Signs 04/01/25 09:08 Height 5 ft 6 in Weight 232 lb 12.93 oz BMI 37.6 BP 100/74 Blood Pressure Location Rt brachial Position Sitting Pulse 88 Pulse Source Pulse Oximeter Pulse Oximetry (%) 98 Oxygen Delivery Method Room Air Intake Visit Reasons: f/u obesity Intake Note: Patient present today to follow up on Weight Management. 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 He started at a weight of approximately 272 pounds and is currently taking Zepbound 5 mg weekly. He has lost an additional 7 pounds since his last visit, with a current weight of 230 pounds, which has been stable for the past two months. Overall, he has lost approximately 42 pounds. He tolerates the Zepbound 5 mg dose well, reporting that nausea is not severe. He notes that the medication's effect wears off toward the end of the week, leading to increased hunger and snacking, particularly on Tuesday, , and Tuesday. Medication History - Zepbound 5 mg weekly: Used for weight management with good tolerance and response. Medications - Zepbound 5 mg weekly injection for weight management. Exercise No exercise habits were discussed during the visit. Diet History The patient reports an increase in hunger and snacking towards the end of the weekly medication cycle. Results - No diagnostic results were discussed during the visit. [facility] Medical History EMILY (obstructive sleep apnea) Morbid obesity Cough variant asthma Allergic rhinitis Lateral epicondylitis, right elbow Surgical History Hx of removal of cyst Hx of elbow surgery Family History Father Mental health disorder Family history of diabetes mellitus Maternal Uncle Substance use disorder Family history of diabetes mellitus Paternal Uncle Substance use disorder Social History Housing: House Alcohol intake: current Alcohol intake frequency: a few times a month Patient Tobacco Use Status: Never used Tobacco e-Cigarette/Vaping Use: Never Used Second Hand Smoke Exposure: No service: No Current occupational status: employed Current occupation: [employer] Cognitive needs: No Hearing needs: No Vision needs: No Review of Systems Narrative Review of Systems - Constitutional: Reports increased hunger towards the end of the weekly dosing interval. - Gastrointestinal: Reports minimal nausea and occasional feelings of fullness. Physical Exam Exam Exam: Physical Exam - No physical exam was conducted during the visit. Absence of Cushingoid features. Absence of acromegalic features. Neck exam reveals nl size thyroid about 15 gms. No thyroid nodules palpable. Heart S1 S2, Reg R/R. No M/R G. Skin exam reveals absence of vitiligo or acanthosis nigricans. Visual exam of foot performed. No ulcerations or open lesions. No inter digit maceration or fissuring. No onychomycosis, no callouses. Sensation intact to monofilament exam. Vibratory sensation is normal with 128 Hz tuning fork. Vital Signs: Last Vital Signs Pulse 88 04/01/25 09:08 BP 100/74 04/01/25 09:08 Pulse Ox 98 04/01/25 09:08 Oxygen Delivery Method Room Air 04/01/25 09:08 BMI result Body Mass Index 37.6 Assessment & Plan Assessment & Plan (1) Morbid obesity: Code(s): E66.01 - Morbid (severe) obesity due to excess calories Category: Medical Plan Assessment and Plan 1. Obesity The patient has shown a significant response to treatment with Zepbound 5 mg, with a total weight loss of approximately 42 pounds from a starting weight of 272 pounds. His current weight has plateaued at 230 pounds for the last two months. He tolerates the medication well, with only minimal nausea, but notes waning efficacy with increased hunger towards the end of the dosing week. A dose increase to 7.5 mg was considered to overcome the plateau. However, due to concerns about potential insurance authorization difficulties, the decision was made to continue the 5 mg dose for now. The plan is to re-evaluate for a dose increase to 7.5 mg after the first of the year. A prescription for Zepbound 5 mg will be renewed to ensure continuity of care. Follow-up is scheduled in four months. The patient had an opportunity to ask questions regarding treatment plan. The patient expressed understanding and agreement with the above treatment plan. Patient was informed and verbally consented to the use of an ambient scribe for clinic note documentation during this visit. Discussion Notes I reviewed the patient's progress on Zepbound 5 mg for weight management. We discussed his significant weight loss of approximately 42 lbs and his current weight plateau over the last two months. We considered increasing the dose to Zepbound 7.5 mg to promote further weight loss, and I noted that his good tolerance of the 5 mg dose suggests he would likely tolerate the higher dose as well. However, due to concerns about potential insurance approval delays for the dose increase, especially around the new year, we mutually agreed to continue the 5 mg dose for now. I have sent a refill for the Zepbound 5 mg. I advised the patient to contact me after the first of the year to proceed with the dose increase. We briefly discussed the potential for weight regain if the medication is stopped, acknowledging there is no standard protocol for tapering. Follow-up will be in approximately four months. Patient Instructions - Continue taking your Zepbound 5 mg injection once a week. - A refill for your current Zepbound 5 mg dose has been sent to your pharmacy. - Contact our office after the first of the year to discuss increasing your medication dose to 7.5 mg. - Schedule a follow-up appointment in about four months. Medications: Refilled tirzepatide (weight loss) (Zepbound) 5 mg (0.5 mL) subcut QWEEK 2 mL 3RF Coding Level of Care Code Est Pt Level 3 (50255) Diagnoses Morbid obesity E66.01
== END 2025-04-01 09:22 | disposition home or self-care (01) ==
LOC: HO.ENCR 08:54
PROVIDERS: PCP Nurse Practitioner Family; Visit Provider Internal Medicine Endocrinology, Diabetes & Metabolism
DX: E66.01 Morbid (severe) obesity due to excess calories (principal)
CPT/HCPCS: 99213

== ENCOUNTER 2025-04-02 14:56 | Outpatient (AMB) | payer OTHER, SELFPAY ==
[2025-04-02 14:59] VITALS: BP 114/62; PULSE 88; O2SAT 98; BMI 37.6
--- NOTE | 2025-04-02 14:59 | A.OFFPC_ITS ---
Vital Signs 04/02/25 14:59 Height 5 ft 6 in Weight 233 lb BMI 37.6 BP 114/62 Blood Pressure Location Lt brachial Position Sitting Pulse 88 Pulse Source Pulse Oximeter Pulse Oximetry (%) 98 Oxygen Delivery Method Room Air Intake Visit Reasons: Annual PE Fire Manager Required: No Allergies amoxicillin Allergy (Unknown, Verified 04/02/25 15:02) nausea/vomitting sumatriptan Allergy (Unknown, Verified 04/02/25 15:02) nausea/vomiting Medication List - Last Reconciled 04/02/25 by NAIDA GomezP- albuterol sulfate 90 mcg/actuation 1 inh inhalation QID PRN fluticasone furoate 27.5 mcg/actuation (Flonase Sensimist) 2 sprays intranasal DAILY levocetirizine (Xyzal) 5 mg PO DAILY montelukast 10 mg PO BEDTIME 90 days omeprazole 20 mg PO BEDTIME tirzepatide (weight loss) (Zepbound) 5 mg (0.5 mL) subcut QWEEK Tobacco use date assessed: 08/30/24 Dental Screening Dental Screen Date: 04/02/25 Did you have a dental visit in the last 12 months?: Yes Did you have a dental problem in the last 6 months where you did not have access to dental care?: No Was dental information given to patient?: Patient has dentist HPI Annual PE HPI Details History of Present Illness The patient is a 39 year old male presenting for a physical exam. He has achieved significant weight loss with the use of a GLP-1 agonist and is reportedly doing well. Health Maintenance - The patient presents for a physical ex am. - He has achieved significant weight los s on a GLP-1 agonist. - Fasting labs will be ordered for the n ear future. Social History - Weight management: The patient has los t a significant amount of weight. Review of Systems - Cardiovascular: Denies chest pain. - Respiratory: Denies shortness of breat h. - Gastrointestinal: Denies abdominal mayra n, blood in stool, constipation, and diarrhea. - Psychiatric: Denies suicidal or homici rhianna ideation. Physical Exam General: Cooperative, healthy appearing, comfortable, no acute distress and well developed Orientation: Patient oriented x3 Limitations: No limitations Head: Normal to inspection Ears: Hearing grossly normal bilaterally Nose: Normal external nose present Face and sinus: Normal facial exam Eyes: Appearance normal, both eyes and all related structures Neck: Normal visual inspection and Yes full ROM Respiratory: Normal respiratory effort and able to speak in complete sentences. Clear to auscultation bilaterally Cardiovascular: Regular rate and rhythm. Normal S1 and S2 GI: Normal to inspection. Soft to palpation and nontender : testicles without masses/lesions and no hernias appreciated Skin: No rashes or lesions noted Neuro: Patient oriented x3 Extremities: Normal to inspection Results Plan 1. Annual Physical Examination The patient presents for a routine physical exam and is noted to be doing well. Fasting labs will be ordered for the near future. 2. Weight Management The patient has experienced significant weight loss with a GLP-1 agonist. He will have fasting lab work performed in the near future to monitor his health status. Discussion Notes I noted that the patient is here for a physical exam and has had significant weight loss using a GLP-1 agonist, and is doing quite well. I am going to have him get his fasting labs in the near future. Patient Instructions - Please go to the lab to have your bloo d drawn soon. You should not eat or drink anything except water for at least 8 hours before the test. [facility] Medical History EMILY (obstructive sleep apnea) Morbid obesity Cough variant asthma Allergic rhinitis Lateral epicondylitis, right elbow Surgical History Hx of removal of cyst Hx of elbow surgery Family History Father Mental health disorder Family history of diabetes mellitus Maternal Uncle Substance use disorder Family history of diabetes mellitus Paternal Uncle Substance use disorder Social History Housing: House Alcohol intake: current Alcohol intake frequency: a few times a month Patient Tobacco Use Status: Never used Tobacco e-Cigarette/Vaping Use: Never Used Second Hand Smoke Exposure: No service: No Current occupational status: employed Current occupation: [employer] Cognitive needs: No Hearing needs: No Vision needs: No Questionnaire PHQ-9 Over the last 2 weeks, how often have you been bothered by any of the following problems? 1. Little interest or pleasure in doing things: not at all 2. Feeling down, depressed, or hopeless: not at all 3. Trouble falling or staying asleep, or sleeping too much: not at all 4. Feeling tired or having little energy: not at all 5. Poor appetite or overeating: not at all 6. Feeling bad about yourself - or that you are a failure or have let yourself or your family down: not at all 7. Trouble concentrating on things, such as reading the newspaper or watching television: not at all 8. Moving or speaking so slowly that other people could have noticed. Or the opposite - being so fidgety or restless that you have been moving around a lot more than usual: not at all 9. Thoughts that you would be better off or of hurting yourself in some way: not at all Total score: 0 Depression Screening Interpretation: Negative Depression Screening Done: Yes 06985 - PHQ-9 Billing: Yes Source: Developed by Drs. Joshua Rhoades, Eveline Shay, Branden Moura and colleagues, with an educational juan from [employer]. Thrive Questionnaire Date Thrive assessed: 08/27/24 I am a: Patient What is your living situation today?: I have a steady place to live Within the past 12 months, did the food you bought not last and you didn't have the money to get more?: Never true Within the past 12 months, did you worry whether your food would run out before you got money to buy more?: Never true Do you have trouble paying for medicines?: No Do you have trouble getting transportation to medical appointments?: No Do you have trouble paying your heating and electricity bill?: No Do you have trouble taking care of your child, family member or friend?: No Do you have trouble with day-to-day activities such as bathing, preparing meals, shopping, managing finances, etc.?: No Are you currently unemployed and looking for a job?: No Are you interested in more education?: No Currently or been in a relationship where the following occur: No concerns reported THRIVE Score: 0 ZULAY-7 AMB Questionnaire ZULAY-7 Date ZULAY - 7 assessed: 04/02/25 Feeling nervous, anxious, or on edge: 0 = Not at all Not being able to stop or control worryin = Not at all Worrying too much about different things: 0 = Not at all Trouble relaxin = Not at all Being so restless that it is hard to sit still: 0 = Not at all Becoming easily annoyed or irritable: 0 = Not at all Feeling afraid as if something awful might happen: 0 = Not at all Total ZULAY-7 score (0-4 normal; 5-9 mild; 10-14 moderate; 15-21 severe): 0 Source: Developed by Drs. Joshua Rhoades, Eveline Shay, Branden Moura and colleagues, with an educational juan from [employer]. ZULAY-7 Assessment Billing ZULAY-7 Assessment Tool: ZULAY-7 Assessment 35702 Physical exam (Primary Care) Vital Signs: Last Vital Signs Pulse 88 04/02/25 14:59 BP 114/62 04/02/25 14:59 Pulse Ox 98 04/02/25 14:59 Oxygen Delivery Method Room Air 04/02/25 14:59 BMI result Body Mass Index 37.6 Tobacco/Smoking Status: Tobacco use Status Tobacco use date assessed 08/30/24 04/02/25 15:04 Patient Tobacco Use Status Never used Tobacco 04/02/25 15:04 e-Cigarette/Vaping Use Never Used 04/02/25 15:04 PHQ-9: PHQ-9 Score PHQ-9: Total score 0 04/02/25 15:04 Depression Screening Interpretation: Negative Thrive Assessment: Date of Thrive Assessment Date Thrive assessed 08/27/24 04/02/25 15:04 Currently or been in a relationship where the following occur: No concerns reported Coding Level of Care Code Est Pt Prev Care 40-64y(69611) Diagnoses Physical exam Z00.00 Additional Codes ZULAY-7 Assessment Billing - ZULAY-7 Assessment Tool: ZULAY-7 Assessment 41254 ([id number]) PHQ-9 - 89725 - PHQ-9 Billing: Yes ([id number]) Assessment & Plan Assessment & Plan (1) Physical exam: Code(s): Z00.00 - Encounter for general adult medical examination without abnormal findings Category: Medical Plan . Orders: Orders Complete Blood Count Auto Diff Today Z00.00 - Encounter for general adult medical examination without abnormal findings UA CC w/rflx Micro + Cult Today Z00.00 - Encounter for general adult medical examination without abnormal findings Comprehensive Axtell. Panel Fast Today Z00.00 - Encounter for general adult medical examination without abnormal findings TSH reflex Free T4 Today Z00.00 - Encounter for general adult medical examination without abnormal findings Lipid Panel Today Z00.00 - Encounter for general adult medical examination without abnormal findings
== END 2025-04-02 15:35 | disposition home or self-care (01) ==
LOC: HO.HMCC 14:56
PROVIDERS: PCP Nurse Practitioner Family; Visit Provider Nurse Practitioner Family
DX: Z00.00 Encounter for general adult medical examination without abnormal findings (principal)

== ENCOUNTER → 2025-04-02 14:56 | Outpatient (BNVA) | payer OTHER, SELFPAY | PROVIDERS: PCP Nurse Practitioner Family; Visit Provider Nurse Practitioner Family | DX: Z00.00 Encounter for general adult medical examination without abnormal findings (principal); E66.01 Morbid (severe) obesity due to excess calories; R63.4 Abnormal weight loss; Z13.31 Encounter for screening for depression; Z13.39 Encounter for screening examination for other mental health and behavioral disorders; Z79.899 Other long term (current) drug therapy | CPT/HCPCS: 96127 ==

== ENCOUNTER 2025-04-03 08:23 | Outpatient (REF) | payer OTHER, SELFPAY ==
[2025-04-03 10:19] LABS: MANUAL DIFF FLAG NO
[2025-04-03 10:26] LABS: Hematocrit 49.7 % (42.0-52.0); Hemoglobin 16.3 g/dl (14.0-18.0); Imm Gran Abs Auto 0.03 X10*3/uL (0.00-0.03); Imm Gran Pct Auto 0.4 % (0.0-0.4); Lymphocytes Absolute Auto 2.3 X10*3/uL (1.2-4.9); Mean Corpuscular HGB Conc 32.8 g/dl (31.0-36.0); Mean Corpuscular Hemoglobin 28.7 pg (27.0-33.0); Mean Corpuscular Volume 87.7 fL (80.0-98.0); NRBC Abs Auto 0.000 X10*3/uL (0.0-0.012); NRBC Pct Auto 0.0 /100WBC (0.0-0.2); Platelet Count 270 X10*3/uL (160-400); Red Blood Count 5.67 X10*6/uL (4.60-5.80); White Blood Count 8.2 X10*3/uL (4.8-10.8)
[2025-04-03 10:36] LABS: Appearance Urine Clear; Glucose Urine UA Negative (Negative); PH 6.0 (5.0-9.0); Specific Gravity - Urine 1.020 (1.005-1.025)
[2025-04-03 10:55] LABS: Alanine Aminotransferase 38 U/L (0-40); Albumin Level 4.2 g/dL (3.5-5.0); Alkaline Phosphatase 80 U/L (39-117); Anion Gap 10 (12-20); Aspartate Amino Transferase 35 U/L (5-37); Blood Urea Nitrogen 12 mg/dL (9-16); Calcium 9.6 mg/dL (8.4-10.2); Carbon Dioxide 30 mmol/L (22-29); Chloride 105 mmol/L (96-108); Cholesterol 199 mg/dL (<200); Estimated Glomerular Filt Rate > 60; HDL Cholesterol 33 mg/dL (>40); Potassium 4.4 mmol/L (3.3-5.1); Sodium 141 mmol/L (135-145); Total Protein 7.5 g/dL (6.5-8.0); Triglycerides 111 mg/dL (<150)
== END 2025-04-03 08:24 | disposition home or self-care (01) ==
LOC: HO.HMGCLDS 08:23
PROVIDERS: PCP Nurse Practitioner Family; Visit Provider Nurse Practitioner Family
DX: Z00.00 Encounter for general adult medical examination without abnormal findings (principal); Z13.29 Encounter for screening for other suspected endocrine disorder; Z13.6 Encounter for screening for cardiovascular disorders
CPT/HCPCS: 36415; 80053; 80061; 81003; 84443; 85025